=== PATIENT | female | born 1995 | race Caucasian/White ===

== ENCOUNTER → 2020-06-14 14:15 | Outpatient (BNVA) | payer MEDICARE, MEDICAID, SELFPAY | PROVIDERS: Visit Provider Internal Medicine | DX: E11.9 Type 2 diabetes mellitus without complications (principal); K52.9 Noninfective gastroenteritis and colitis, unspecified | CPT/HCPCS: 36415; 80053; 85025; 85651 ==

== ENCOUNTER 2020-06-18 08:48 | Day surgery (SDC) | payer MEDICARE, MEDICAID, SELFPAY ==
[2020-06-17 10:12] VITALS: BMI 21.2
[2020-06-18 09:07] VITALS: BP 119/81; PULSE 106; RESP 18; TEMP 36.3; O2SAT 100
--- NOTE | 2020-06-18 09:24 | ANES.PREANE2 ---
Pre-Anesthetic Assessment Pre-Anesthetic Assessment: Height/Weight: Height 1.65 m Weight 58.06 kg Temp Pulse Resp BP Pulse Ox 97.3 F L 106 H 18 119/81 100 06/18/20 09:07 06/18/20 09:07 06/18/20 09:07 06/18/20 09:07 06/18/20 09:07 Preop Diagnosis: ibd Proposed Procedure: Operation Date: 06/18/20 10:30 Proposed Procedures p EGD [id number] K52.9(Not Applicable) - Omkar Pinon MD s Colonoscopy(Not Applicable) - Omkar Pinon MD Last intake: Intake Last Liquid Date 06/17/20 Last Liquid Time 19:00 Last Solid Date 06/09/20 Last Solid Time 23:30 Social: Social History: Alcohol (occ) and Tobacco Exam: Pre-Anes Outpt Exam: alert, oriented x 3, clear to auscultation bilaterally and regular rate & rhythm Airway: Submandibular: WNL Cervical ROM: WNL MP: 2 Dentition: Other (poor dentation) History/ROS: No significant history except as noted Pulmonary: Pulmonary: None reported CV/HEM: CV/HEM: None reported : : None reported Hepatic: Hepatic: None reported GI: Comments: Crohn's disease Metabolic: Metabolic: None reported Musc/skel: Musc/skel: None reported Neuropsych: Neuropsych: None reported Anesthetic Plan: ASA status: 2 Anesthesia: Anesthesia Evaluation and MAC Risk of > 500 ml blood loss (7ml/kg in children): No PFSH Anesthesia PFSH: Medical History (Updated 06/18/20 @ 09:24 by Robert Romero MD) Crohn's disease Family History Father Cancer Other Diabetes Social History Smoking and tobacco status: current some day smoker Alcohol intake: current Alcohol intake frequency: holidays/special occasions only Alcohol type: hard liquor Adopted: No service: No History of recent travel: No Current gender identity: Female Data Anesthesia Cardiac Studies: No Data to Display
[2020-06-18] MEDS: sodium chloride 0.9% 1,000 ML 30 ML IV (09:33)
--- NOTE | 2020-06-18 10:57 | W.PM.OPSUD ---
Surgery/Procedure H&P Update DATE OF PROCEDURE: June 18, 2020 DATE H&P PERFORMED: 06/14/20 PREOP DIAGNOSIS: ibd PLANNED PROCEDURE: Operation Date: 06/18/20 10:30 Proposed Procedures p EGD [id number] K52.9(Not Applicable) - Omkar Pinon MD s Colonoscopy(Not Applicable) - Omkar Pinon MD
--- NOTE | 2020-06-18 10:59 | W.PM.OPSUD ---
Surgery/Procedure H&P Update DATE OF PROCEDURE: June 18, 2020 DATE H&P PERFORMED: 06/14/20 PREOP DIAGNOSIS: ibd PLANNED PROCEDURE: Operation Date: 06/18/20 10:30 Proposed Procedures p EGD [id number] K52.9(Not Applicable) - Omkar Pinon MD s Colonoscopy(Not Applicable) - Omkar Pinon MD
[2020-06-18 11:00] LABS: OR HCG Qualitative Urine Negative (Negative)
[2020-06-18 11:12] VITALS: BP 93/57; PULSE 92; RESP 16; TEMP 36.3; O2SAT 100
[2020-06-18 11:29] VITALS: BP 103/80; PULSE 89; RESP 18; O2SAT 100
--- NOTE | 2020-06-18 12:06 | ANE.PACU2 ---
Inpatient post-anesthesia follow up: Airway intact: Yes Vital signs: Temperature 97.4 F Pulse Rate 89 Respiratory Rate 18 Blood Pressure 103/80 Pulse Oximetry 100 Oxygen Delivery Me thod Room Air Oxygen Flow Rate 3.0 Fraction of Inspir ed Oxygen Hydration adequate: Yes Nausea and vomiting: No Mental status: Baseline
[2020-06-21 06:31] LABS: H. Pylori / CLO Test Negative
== END 2020-06-18 12:10 | disposition home or self-care (01) ==
PROVIDERS: Anesthesiology; Visit Provider Internal Medicine
PROC: 0DJ08ZZ Inspection of Upper Intestinal Tract, Via Natural or Artificial Opening Endoscopic (ICD-10-PCS; CPT 43235; principal; 2020-06-18 10:30)
PROC: 0DJD8ZZ Inspection of Lower Intestinal Tract, Via Natural or Artificial Opening Endoscopic (ICD-10-PCS; CPT 45378; 2020-06-18 10:30)
DX: K52.9 Noninfective gastroenteritis and colitis, unspecified (principal); K92.1 Melena; F17.210 Nicotine dependence, cigarettes, uncomplicated; K29.70 Gastritis, unspecified, without bleeding
CPT/HCPCS: 12345; 43239; 45380; 84703; 87077; 88305; J2704; J3010; J7030

== ENCOUNTER 2020-08-11 12:38 | Outpatient (CLI) | payer MEDICARE, MEDICAID, SELFPAY ==
[2020-08-11 13:47] LABS: HIV 1 & 2 Antibody Non-Reactive (Non-Reactiv); HIV 1 & 2 Antigen Non-Reactive (Non-Reactiv)
== END 2020-08-11 12:39 | disposition home or self-care (01) ==
LOC: LAB 12:39
PROVIDERS: Visit Provider Family Medicine Adult Medicine
DX: Z20.6 Contact with and (suspected) exposure to human immunodeficiency virus [HIV] (principal)
CPT/HCPCS: 87806

== ENCOUNTER 2021-05-15 11:45 | Inpatient (IN) | payer MEDICARE, MEDICAID, SELFPAY ==
[2021-05-15 11:50] VITALS: BP 118/88; PULSE 93; RESP 18; TEMP 36.5; O2SAT 100; BMI 19.6
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
[2021-05-15 12:50] LABS: Add Urine Microscopic? YES; Amphetamines Screen Urine Negative (Negative); Barbiturates Screen Urine Negative (Negative); Benzodiazepines Screen Urine Negative (Negative); Bilirubin Urine 1+ (Negative); Blood Urine 3+ (Negative); Cocaine Screen Urine Negative (Negative); Glucose Urine UA Norm (Normal); Ketones Urine Negative (Negative); Leukocyte Esterase Urine Negative (Negative); Nitrate Urine Negative (Negative); Opiate Screen Urine Negative (Negative); PCP Screen Urine Negative (Negative); Protein Urine Neg (Negative); THC Screen Urine Negative (Negative); Urine Appearance Clear (CLEAR); Urine Color Yellow (Yellow); Urobilinogen Urine Norm (Negative); pH Urine 5 (5-7)
[2021-05-15 12:52] LABS: Bacteria Urine TRACE /hpf; Mucus Urine 1+ /hpf; RBC Urine 15-25 /hpf (0-2); Squamous Epithelial Cell Urine 15-25 /hpf (0-5); WBC Urine RARE /hpf (0-5)
[2021-05-15 12:53] LABS: Add Urine Culture? No
[2021-05-15 13:47] LABS: HCG Qualitative Urine. Negative (Negative)
[2021-05-15 13:50] LABS: Basophils % 0.4 %; Eosinophils % 0.8 %; Hematocrit 47.1 % (37.0-47.0); Hemoglobin 14.8 g/dL (11.5-15.3); Mean Corpuscular HGB Conc 31.4 g/dL (30.0-36.0); Mean Corpuscular Hemoglobin 26.5 pg (28.0-34.0); Mean Corpuscular Volume 84.3 fL (81-99); Mean Platelet Volume 10.2 fL (7.4-10.4); Monocytes # 0.4 10^3/uL (0.2-0.9); Monocytes % 15.6 %; Neutrophils # 1.03 10^3/uL (1.8-7.7); Neutrophils % 42.2 %; Nucleated Red Blood Cells % 0 %; Platelet Count 273 10^3/cmm (130-400); Red Blood Count 5.59 10^6/uL (4.1-5.3); Red Cell Distribution Width 15.9 % (12.1-15.1); White Blood Count 2.4 10^3/uL (4.0-10.0)
[2021-05-15 14:03] LABS: Acetaminophen < 5.0 ug/mL (10-30); Alanine Aminotransferase 15 U/L (0-33); Albumin Level 3.8 g/dL (3.5-5.2); Alcohol Level < 10 mg/dL (0-10); Alkaline Phosphatase 73 IU/L (35-105); Anion Gap 14.8 (5-19); Aspartate Amino Transferase 21 U/L (0-32); Blood Urea Nitrogen 16 mg/dL (6-20); Carbon Dioxide 29 mmol/L (22-29); Chloride 98 mmol/L (98-107); Globulin 3.6 g/dL (1.3-4.6); Glomerular Filtration Rate 88.1 mL/min (90-130); Glucose 73 mg/dL (65-115); Osmolality Calculated 286 mOsm/kg (285-295); Potassium 3.8 mmol/L (3.5-5.1); Salicylate < 0.3 mg/dL (3-10); Sodium 138 mmol/L (136-145); Total Bilirubin 0.6 mg/dL (0.15-1.2); Total Protein 7.4 g/dL (6.6-8.7)
[2021-05-15 14:16] LABS: Slide Review Slide Review Perform
[2021-05-15 14:28] VITALS: BP 107/82; PULSE 87; RESP 16; TEMP 36.6; O2SAT 98
--- NOTE | 2021-05-15 14:48 | PC.NURSE ---
reports called to Don RN. awaiting alarm security or surveillance monitor. Pt also requesting cough medication. Doctor aware with, pharmacy called to supply ordered medication. Pt quietly resting at this time with etelvina Alcantar, At door.
[2021-05-15] MEDS: guaiFENesin 100 mg/5 mL UDC 10 mL 200 MG PO (15:04)
[2021-05-15 15:25] VITALS: BP 110/80; PULSE 117; RESP 18; TEMP 36.6; O2SAT 97
[2021-05-15] MEDS: nicotine 2 mg Gum BUCCAL (20:56)
[2021-05-15 21:39] VITALS: BP 106/75; PULSE 87; RESP 19; TEMP 36.6; O2SAT 97
[2021-05-16 06:00] VITALS: BP 101/70; PULSE 76; RESP 17; TEMP 36.6; O2SAT 98
[2021-05-16] MEDS: acetaminophen 325 mg Tablet 650 MG PO (08:37)
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
[2021-05-16 14:00] VITALS: BP 109/75; PULSE 76; RESP 18; TEMP 36.6; O2SAT 100
--- NOTE | 2021-05-16 15:55 | PC.RESP ---
SMOKING CESSATION INFORMATION SENT TO PATIENT.
[2021-05-16] MEDS: fluoxetine 20 mg Capsule PO (17:04)
[2021-05-16 22:00] VITALS: BP 100/66; PULSE 74; RESP 14; TEMP 36.6; O2SAT 99
[2021-05-17] MEDS: trazodone 50 mg Tablet PO ×2 (01:31→20:57)
--- NOTE | 2021-05-17 01:42 | PC.NURSE ---
Pt came to nurses desk requesting something to help her sleep. Trazodone 50mg po given.
[2021-05-17 06:00] VITALS: BP 93/58; PULSE 74; RESP 14; TEMP 36.6; O2SAT 97
[2021-05-17] MEDS: fluoxetine 20 mg Capsule PO (08:05)
[2021-05-17 13:56] VITALS: BP 102/70; PULSE 72; RESP 16; TEMP 36.6; O2SAT 99
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
[2021-05-17] MEDS: acetaminophen 325 mg Tablet 650 MG PO (18:11)
[2021-05-17 20:30] VITALS: BP 107/76; PULSE 68; RESP 16; TEMP 37.1; O2SAT 98
[2021-05-17] MEDS: ondansetron 4 MG Tablet PO (20:57)
--- NOTE | 2021-05-17 21:00 | PC.NURSE ---
pt c/o upset stomach and not being able to sleep. zofran 4mg po for nausea and trazodone 50mg po given for sleep.
--- NOTE | 2021-05-17 22:10 | PC.NURSE ---
pt resting quietly with both eyes closed.
[2021-05-18 06:00] VITALS: BP 99/65; PULSE 65; RESP 15; TEMP 37.1; O2SAT 99
[2021-05-18] MEDS: BuSPIRONE 10 mg Tablet 15 MG PO ×2 (07:52→08:00)
[2021-05-18] MEDS: fluoxetine 20 mg Capsule PO ×2 (07:54→08:00)
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
[2021-05-18 11:15] VITALS: BP 99/65; PULSE 65; RESP 15; TEMP 37.1; O2SAT 99
== END 2021-05-18 11:32 | disposition home or self-care (01) | DRG 880 ==
LOC: ER 12:31 → NP 14:33
PROVIDERS: Admitting Provider Psychiatry & Neurology Psychiatry; Emergency Provider Family Medicine; Visit Provider Psychiatry & Neurology Psychiatry
DX: F41.8 Other specified anxiety disorders (principal); R45.851 Suicidal ideations; K92.1 Melena; Z59.0 Homelessness; F17.210 Nicotine dependence, cigarettes, uncomplicated; Z20.6 Contact with and (suspected) exposure to human immunodeficiency virus [HIV]; K29.70 Gastritis, unspecified, without bleeding; F43.10 Post-traumatic stress disorder, unspecified
CPT/HCPCS: 80053; 80306; 80307; 81001; 81025; 85025; 99285; Q0162

== ENCOUNTER 2023-12-04 17:13 | Emergency (ER) | payer MEDICARE, MEDICAID, SELFPAY ==
[2023-12-04 17:17] VITALS: BP 132/85; PULSE 110; RESP 14; TEMP 37; O2SAT 100; BMI 18.3
--- NOTE | 2023-12-04 17:45 | W.ED.PSYCHS ---
HPI - Psych General: Chief Complaint: Psychiatric Symptoms Stated Complaint: MHE Time Seen by Provider: 12/04/23 17:27 Source: patient Mode of arrival: ambulatory Limitations: no limitations History of Present Illness: 28-year-old female who is homeless states she just came to [place] 2 days ago states she has not felt safe at the new group home she is in. She states that she is rehash some thoughts major depression denies being SI or HI she states she came here because she want to stay in the MPU instead of the group home Associated symptoms: Reports depression Review of Systems Const: Denies: fever(s), chills, body aches or change in appetite ENMT: Denies: throat pain or dental pain Card: Denies: chest pain GI: Denies: abdominal pain, nausea, vomiting or diarrhea Musc: Denies: neck pain or back pain Skin/Breast: Denies: rash Neuro: Denies: headache(s) Psych: Reports: depression PFSH ED PFSH: Medical History HIV exposure Crohn's disease Family History Father Cancer Other Diabetes Social History Smoking and tobacco/nicotine status: current some day tobacco/nicotine user cigarettes Packs smoked per day: 0.5 Years cigarettes smoked: 1 Alcohol intake: never Adopted: No Housing: Homeless Marital status: Single service: No Current occupational status: unemployed and disabled Current gender identity: Female Physical Exam Const: COMMON NORMALS: no acute distress, patient oriented x3 and healthy appearing HENMT: COMMON NORMALS: normocephalic and atraumatic HEAD & SCALP: normocephalic and atraumatic Eye: COMMON NORMALS: Equal, round and reactive pupils present and EOMs intact bilaterally PUPIL: Yes Equal, round and reactive pupils present Neck/C-Spine: COMMON NORMALS: full ROM and supple Chest: COMMONS NORMALS: normal inspection of the chest and normal palpation of entire chest wall Resp: COMMON NORMALS: normal respiratory effort, No retractions, No use of accessory muscles and clear to auscultation bilaterally AUSCULTATION: clear to auscultation bilaterally Cardio: COMMON NORMALS: regular rate, regular rhythm and No murmurs present (Cardio) RATE: regular rate RHYTHM: regular rhythm GI: COMMON NORMALS: Normal to inspection, nondistended, normoactive bowel sounds present, Soft to palpation, non-tender and no masses PALPATION: Yes Soft to palpation Extremity: COMMON NORMALS: normal to inspection and full ROM Neuro: COMMON NORMALS: patient oriented x3, moves all extremities and no focal motor deficits Psych: COMMON NORMALS: mental status grossly normal, Normal thought process present and cooperative THOUGHT PROCESS: Normal thought process present Skin: COMMON NORMALS: no rashes or lesions noted and no wounds GENERAL SKIN EXAM: no rashes or lesions noted Course Vital Signs: Vital signs: Vital Signs Temperature 98.6 F 12/04/23 17:17 Pulse Rate 110 H 12/04/23 17:17 Respiratory Rate 14 12/04/23 17:17 Blood Pressure 132/85 12/04/23 17:17 Pulse Oximetry 100 12/04/23 17:17 Oxygen Delivery Me thod Room Air 12/04/23 17:17 MDM - Psych Medical Decision Making Patient presents here with depression she is not suicidal or homicidal currently homeless but does live in a group home she was mainly wanting a different place to stay do not believe that she is truly suicidal or homicidal she still can state that group home she stable for discharge back there. Medical Records I reviewed the patient's medical records. No radiology studies performed this visit Discharge Plan Discharge Patient Disposition: Home Clinical Impression: Depressed Condition: Stable Discharge Orders: Discharge ED (Routine); Ordered 12/04/23 Ordered By: Javier Limon Referrals: Catalina Daly FNP [Primary Care Provider] - 1-3 days Discharge Diet: Advance as tolerated Discharge Activity: Resume usual activity Patient Instructions: Depression (ED) Coding Level of Care Code ED Pretzel Twister for Jimi Pederson
== END 2023-12-04 19:20 | disposition home or self-care (01) ==
PROVIDERS: Emergency Provider Emergency Medicine; PCP Nurse Practitioner Family
DX: F32.A Depression, unspecified (principal); Z59.01 Sheltered homelessness
CPT/HCPCS: 99283

== ENCOUNTER 2024-10-28 18:06 | Inpatient (IN) | payer MEDICARE, MEDICAID, SELFPAY ==
[2024-10-28 18:23] VITALS: BP 112/79; PULSE 92; RESP 16; TEMP 36.7; O2SAT 98
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
--- NOTE | 2024-10-28 18:44 | XRR_ITS ---
PROCEDURE INFORMATION: Exam: XR Left Knee Exam date and time: 10/28/2024 7:03 PM Age: 29 years old Clinical indication: Pain; Left; Prior surgery; Surgery date: 1-6 months; Surgery type: Lt knee; Additional info: Knee pain S/P surgery TECHNIQUE: Imaging protocol: Radiologic exam of the left knee. Views: 3 views. COMPARISON: No relevant prior studies available. FINDINGS: Bones/joints: Proximal tibial orthopedic hardware in place. Soft tissues: Normal. XR/XR knee LT 3V* [id number] IMPRESSION: Proximal tibial orthopedic hardware in place. Negative for acute bony abnormality.
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
[2024-10-28] MEDS: ibuprofen 600 mg Tablet PO (18:50)
--- NOTE | 2024-10-28 19:01 | PC.NURSE ---
pts belongings were inventoried at this time with security
[2024-10-28 19:17] LABS: HCG Qualitative Urine. Negative (Negative)
[2024-10-28 19:24] LABS: Amphetamines Screen Urine Negative (Negative); Barbiturates Screen Urine Negative (Negative); Benzodiazepines Screen Urine Negative (Negative); Cocaine Screen Urine Negative (Negative); Opiate Screen Urine Negative (Negative); PCP Screen Urine Negative (Negative); THC Screen Urine Negative (Negative)
[2024-10-28 20:07] LABS: Basophils # 0.1 10^3/uL (0.0-0.1); Basophils % 1.1 %; Eosinophils # 0.2 10^3/uL (0.0-0.8); Eosinophils % 2.4 %; Hematocrit 40.7 % (36-47); Lymphocytes # 1.9 10^3/uL (0.8-4.8); Lymphocytes % 30.4 %; Mean Corpuscular HGB Conc 32.2 g/dL (30-55); Mean Corpuscular Hemoglobin 29.7 pg (27-33); Mean Corpuscular Volume 92.3 fl (85-98); Mean Platelet Volume 9.2 fL (7.4-10.4); Monocytes # 0.5 10^3/uL (0.2-0.9); Monocytes % 8.4 %; Neutrophils # 3.57 10^3/uL (1.8-7.7); Neutrophils % 57.5 %; Nucleated Red Blood Cells % 0 %; Platelet Count 377 10^3/cmm (157-399); Red Blood Count 4.41 10^6/uL (3.85-5.65); Red Cell Distribution Width 13.1 % (12.1-15.1); White Blood Count 6.21 10^3/uL (3.29-11.43)
[2024-10-28 20:34] LABS: Alanine Aminotransferase 8 U/L (0-33); Albumin Level 3.8 g/dL (3.5-5.2); Alkaline Phosphatase 99 U/L (35-105); Aspartate Amino Transferase 14 U/L (0-32); Blood Urea Nitrogen 15 mg/dL (6-20); Calcium 9.1 mg/dL (8.5-10.5); Carbon Dioxide 22 mmol/L (22-29); Chloride 104 mmol/L (98-107); Creatinine Clr Calc Pharmacy 149.3375; Globulin 3.7 g/dL (1.3-4.6); Glucose 81 mg/dL (65-115); Osmolality Calculated 284 mOsm/kg (285-295); Sodium 137 mmol/L (136-145); Total Bilirubin 1.1 mg/dL (0.15-1.2); Total Protein 7.5 g/dL (6.6-8.7)
[2024-10-28 20:43] VITALS: BP 99/49; PULSE 72; RESP 16; O2SAT 98
[2024-10-28 20:52] LABS: Acetaminophen < 5.0 ug/mL (10-30); Alcohol Level < 10 mg/dL (0-10); Anion Gap 15.4 (5-19); Potassium 4.4 mmol/L (3.5-5.1); Salicylate < 0.3 mg/dL (3-10)
--- NOTE | 2024-10-28 23:59 | PC.NURSE ---
[facility] Pt served with copy of [facility] by this RN and Security. Pt A&Ox3, all questions answered. Pt calm and cooperative. Pt educated on further admitting floor and provider.
[2024-10-29 00:21] VITALS: BP 113/74; PULSE 78; RESP 16; TEMP 36.4; O2SAT 100
[2024-10-29 00:25] VITALS: BP 110/60; PULSE 68; O2SAT 97
[2024-10-29] MEDS: hyDROXYzine 25 mg Capsule 50 MG PO ×2 (01:29→20:50)
[2024-10-29] MEDS: trazodone 50 mg Tablet PO ×2 (01:30→20:50)
[2024-10-29 06:00] VITALS: BP 98/52; PULSE 72; RESP 16; TEMP 36.4; O2SAT 99
[2024-10-29] MEDS: flu vacc pf 24-25 (6 mos+) SYRINGE 45 MCG IM (08:27)
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
[2024-10-29] MEDS: ibuprofen 600 mg Tablet PO ×2 (13:12→20:50)
[2024-10-29 14:00] VITALS: BP 99/67; PULSE 78; RESP 18; TEMP 36.6; O2SAT 94
[2024-10-29] MEDS: acetaminophen 325 mg Tablet 650 MG PO (17:35)
[2024-10-29 20:26] VITALS: BP 92/64; PULSE 80; RESP 16; TEMP 37; O2SAT 97
[2024-10-30 06:00] VITALS: BP 88/60; PULSE 72; RESP 16; TEMP 36.8; O2SAT 97
[2024-10-30] MEDS: ibuprofen 600 mg Tablet PO ×2 (08:29→21:07)
[2024-10-30 14:00] VITALS: BP 97/62; PULSE 85; RESP 18; TEMP 36.9; O2SAT 99
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
[2024-10-30] MEDS: acetaminophen 325 mg Tablet 650 MG PO (16:59)
[2024-10-30 20:56] VITALS: BP 95/62; PULSE 82; RESP 15; TEMP 36.6; O2SAT 98
[2024-10-30] MEDS: hyDROXYzine 25 mg Capsule 50 MG PO (21:06)
[2024-10-30] MEDS: trazodone 50 mg Tablet PO (21:07)
[2024-10-31 06:00] VITALS: BP 92/58; PULSE 80; RESP 15; TEMP 36.9; O2SAT 98
[2024-10-31] MEDS: acetaminophen 325 mg Tablet 650 MG PO ×3 (08:25→17:47)
[2024-10-31] MEDS: BuSPIRONE 10 mg Tablet PO ×2 (08:25→17:26)
[2024-10-31] MEDS: fluoxetine 20 mg Capsule PO (08:25)
[2024-10-31 14:00] VITALS: BP 105/73; PULSE 89; RESP 18; TEMP 36.9; O2SAT 98
[2024-10-31] MEDS: ibuprofen 600 mg Tablet PO ×2 (15:04→21:24)
[2024-10-31] MEDS: blistex lip oint 7 gm Tube 1 APPLIC TOPICAL (17:47)
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
[2024-10-31 19:50] VITALS: BP 105/62; PULSE 82; RESP 16; TEMP 36.6; O2SAT 97
[2024-10-31] MEDS: hyDROXYzine 25 mg Capsule 50 MG PO (21:24)
[2024-10-31] MEDS: trazodone 50 mg Tablet PO (21:24)
[2024-11-01] MEDS: hyDROXYzine 25 mg Capsule 50 MG PO ×2 (04:56→19:39)
[2024-11-01 06:00] VITALS: BP 99/58; PULSE 76; RESP 16; TEMP 36.5; O2SAT 94
[2024-11-01] MEDS: BuSPIRONE 10 mg Tablet PO ×2 (07:59→17:07)
[2024-11-01] MEDS: fluoxetine 20 mg Capsule PO (07:59)
[2024-11-01] MEDS: acetaminophen 325 mg Tablet 650 MG PO ×2 (08:34→17:07)
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
[2024-11-01 14:00] VITALS: BP 116/67; PULSE 86; RESP 18; TEMP 36.8; O2SAT 99
[2024-11-01] MEDS: ibuprofen 600 mg Tablet PO (15:16)
--- NOTE | 2024-11-01 18:48 | PC.NURSE ---
Anuel Fallon's phone number is [phone]
[2024-11-01] MEDS: trazodone 50 mg Tablet PO (19:39)
[2024-11-01] MEDS: OLANZapine 5 mg ODT PO (19:39)
[2024-11-01 19:44] VITALS: BP 100/69; PULSE 90; RESP 18; TEMP 36.4; O2SAT 98
[2024-11-02 06:15] VITALS: BP 87/62; PULSE 74; RESP 16; O2SAT 96
[2024-11-02] MEDS: BuSPIRONE 10 mg Tablet PO ×2 (08:09→20:13)
[2024-11-02] MEDS: fluoxetine 20 mg Capsule PO (08:09)
[2024-11-02] MEDS: acetaminophen 325 mg Tablet 650 MG PO (08:09)
[2024-11-02 14:00] VITALS: BP 105/66; PULSE 76; RESP 15; TEMP 36.6; O2SAT 98
[2024-11-02] MEDS: ibuprofen 600 mg Tablet PO (15:51)
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
[2024-11-02 19:59] VITALS: BP 100/67; PULSE 89; RESP 18; TEMP 36.4; O2SAT 96
[2024-11-02] MEDS: trazodone 50 mg Tablet PO (20:13)
[2024-11-03 06:00] VITALS: BP 129/86; PULSE 73; RESP 16; TEMP 36.6; O2SAT 97
[2024-11-03] MEDS: fluoxetine 20 mg Capsule PO (07:34)
[2024-11-03] MEDS: BuSPIRONE 10 mg Tablet PO ×3 (07:35→21:02)
[2024-11-03] MEDS: acetaminophen 325 mg Tablet 650 MG PO (07:35)
[2024-11-03] MEDS: nicotine 2 mg Gum BUCCAL (13:57)
[2024-11-03 14:00] VITALS: BP 104/72; PULSE 91; RESP 18; TEMP 36.6; O2SAT 98
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
[2024-11-03 20:09] VITALS: BP 102/71; PULSE 87; RESP 16; TEMP 37; O2SAT 97
[2024-11-03] MEDS: trazodone 50 mg Tablet PO (21:02)
[2024-11-04] MEDS: acetaminophen 325 mg Tablet 650 MG PO (05:33)
[2024-11-04 06:00] VITALS: BP 100/69; PULSE 92; RESP 18; TEMP 36.4; O2SAT 97
[2024-11-04] MEDS: BuSPIRONE 10 mg Tablet PO ×2 (08:36→14:38)
[2024-11-04] MEDS: fluoxetine 20 mg Capsule 30 MG PO (08:42)
[2024-11-04] MEDS: nicotine 2 mg Gum BUCCAL (11:47)
--- NOTE | 2024-11-04 12:30 | DCPLANNER ---
Imm was given to pt and rights explained and copy placed in pts file.
[2024-11-04] MEDS: ibuprofen 600 mg Tablet PO (12:57)
[2024-11-04] MEDS: nicotine 4 mg lozenge MUCOUS MEM (13:57)
[2024-11-04 14:00] VITALS: BP 100/65; PULSE 97; RESP 18; TEMP 36.6; O2SAT 97
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
[2024-11-04 14:26] VITALS: BP 100/69; PULSE 18; RESP 92; TEMP 36.4; O2SAT 97
== END 2024-11-04 16:18 | disposition home or self-care (01) | DRG 885 ==
LOC: ER 23:16 → NP 23:51
PROVIDERS: Admitting Provider Psychiatry & Neurology Psychiatry; Emergency Provider Physician Assistant; Visit Provider Psychiatry & Neurology Psychiatry
DX: F33.9 Major depressive disorder, recurrent, unspecified (principal); R45.851 Suicidal ideations; Z59.00 Homelessness unspecified; M25.562 Pain in left knee; Z87.820 Personal history of traumatic brain injury
CPT/HCPCS: 70450; 73562; 80053; 80306; 80307; 81025; 85025; 90471; 90686; 97150; 97165; 97167; 99285

== ENCOUNTER 2025-07-28 16:31 | Inpatient (IN) | payer MEDICARE, MEDICAID, SELFPAY ==
[2025-07-28 16:31] VITALS: BP 110/75; PULSE 68; RESP 16; TEMP 36.8; O2SAT 100
--- OUTSIDE RECORDS SUMMARY | 2025-07-28 16:34 | XMS_ITS | Patient Health Record ---
Author Organization [facility] Address [address], [place] [address] Support Name Relationship Address Phone Nicolasa Vang Guarantor Unknown Reason For Referral No Information Medications Medication SIG (Take, Route, Frequency, Duration) Notes Start Date End Date Status Triamcinolone Acetonide 0.25 MG/ML Topical Cream Triamcinolone Acetonide 0.25 MG/ML Topical Cream 03/27/2017 Active Fluticasone propionate 0.05 MG/ACTUAT Metered Dose Nasal [place] Fluticasone propionate 0.05 MG/ACTUAT Metered Dose Nasal [place] 08/21/2016 Active Folic Acid 1 MG Oral Tablet Folic Acid 1 MG Oral Tablet 08/08/2016 Active Nystatin 493708 UNT/ML Topical Cream Nystatin 001525 UNT/ML Topical Cream 12/21/2016 Active Ibuprofen 200 MG Oral Tablet Ibuprofen 200 MG Oral Tablet 01/08/2017 Active Loratadine 10 MG Oral Tablet Loratadine 10 MG Oral Tablet 08/29/2016 Active Immunizations Vaccine Route Administration Date Status Comme nts DTaP-Hib Unknown 1997 Administered Hep B, adolescent or pediatr ic (11-19), 3 dose schedule Unknown 1997 Administered Hib (PRP-T), 4 dose schedule , ActHIB Unknown 07/21/1998 Administered HPV (human papillomavirus), bivalent, 3 dose schedule Unknown 11/04/2013 Administered IPV Unknown 05/06/2001 Administered MMR Unknown 05/06/2001 Administered Tdap Unknown 03/27/2017 Administered Varicella (Varicella-Zoster/ Chicken Pox) Unknown 11/04/2013 Administered DTaP-Hib Unknown 05/06/2001 Administered DTaP-Hib Unknown 07/21/1998 Administered DTaP-Hib Unknown 1997 Administered DTaP-Hib Unknown 1997 Administered Hep B, adolescent or pediatr ic (11-19), 3 dose schedule Unknown 1997 Administered Hep B, adolescent or pediatr ic (11-19), 3 dose schedule Unknown 1997 Administered Hib (PRP-T), 4 dose schedule , ActHIB Unknown 1997 Administered HPV (human papillomavirus), bivalent, 3 dose schedule Unknown 08/14/2012 Administered HPV (human papillomavirus), bivalent, 3 dose schedule Unknown 05/05/2009 Administered MMR Unknown 06/10/1998 Administered Tdap Unknown 04/01/2010 Administered Varicella (Varicella-Zoster/ Chicken Pox) Unknown 06/10/1998 Administered Social History Social History Additional Details Category Social Info Options Details zzMigrated Social History Migrated Social History Smoking Status:Never smoked tobacco (finding) Plan Of Treatment No Information
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
[2025-07-28 16:55] LABS: Glucose Urine UA Negative (Normal); Nitrate Urine Negative (Negative); Specific Gravity, Urine 1.028 (1.005-1.030)
[2025-07-28 16:59] LABS: Add Urine Microscopic? YES; HCG Qualitative Urine. Negative (Negative)
[2025-07-28 17:04] LABS: PCP Screen Urine Negative (Negative)
[2025-07-28 17:14] LABS: Hematocrit 40.7 % (36-47); Hemoglobin 12.90 g/dL (11.27-16.99); Mean Corpuscular HGB Conc 31.7 g/dL (30-55); Mean Corpuscular Hemoglobin 29.6 pg (27-33); Mean Corpuscular Volume 93.3 fl (85-98); Nucleated Red Blood Cells % 0 %; Platelet Count 409 10^3/cmm (157-399); Red Blood Count 4.36 10^6/uL (3.85-5.65); White Blood Count 7.13 10^3/uL (3.29-11.43)
[2025-07-28 17:20] LABS: UA Slide Review UA Slide Review Perf
[2025-07-28 17:25] LABS: Alanine Aminotransferase 9 U/L (0-33); Albumin Level 3.8 g/dL (3.5-5.2); Alkaline Phosphatase 85 U/L (35-105); Anion Gap 10.4 (5-19); Aspartate Amino Transferase 13 U/L (0-32); Blood Urea Nitrogen 9 mg/dL (6-20); Calcium 8.6 mg/dL (8.5-10.5); Carbon Dioxide 27 mmol/L (22-29); Chloride 108 mmol/L (98-107); Creatinine Clr Calc Pharmacy 127.3450; Globulin 4.1 g/dL (1.3-4.6); Glucose 70 mg/dL (65-115); Osmolality Calculated 289 mOsm/kg (285-295); Potassium 4.4 mmol/L (3.5-5.1); Sodium 141 mmol/L (136-145); Total Protein 7.9 g/dL (6.6-8.7)
[2025-07-28 17:26] LABS: Acetaminophen < 5.0 ug/mL (10-30); Alcohol Level < 10 mg/dL (0-10); Salicylate < 0.3 mg/dL (3-10)
[2025-07-28 20:42] VITALS: BP 85/49; PULSE 90; O2SAT 97
[2025-07-28 20:47] VITALS: BP 105/72; PULSE 69; RESP 20; TEMP 36.4; O2SAT 100
[2025-07-28 22:00] VITALS: BP 105/72; PULSE 69; RESP 20; TEMP 36.4; O2SAT 100
[2025-07-29 06:00] VITALS: BP 96/60; PULSE 76; RESP 14; TEMP 36.7; O2SAT 98
--- NOTE | 2025-07-29 06:19 | PC.NURSE ---
Pt was very cooperartive
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
--- NOTE | 2025-07-29 09:09 | NUR.SHIFT ---
Pt states that she slept good last night. She denies anxiety and depression. No reports of SI/HI or hallucinations. No reports of pain. Pt was asleep when I entered the room. I asked her if she would like to eat her breakfast and she declined. Pt was calm and cooperative on assessment.
[2025-07-29 13:23] VITALS: BP 98/65; PULSE 77; RESP 16; TEMP 36.6; O2SAT 98
[2025-07-29 21:08] VITALS: BP 109/67; PULSE 87; RESP 14; TEMP 36.7; O2SAT 98
[2025-07-30 06:00] VITALS: BP 88/59; PULSE 68; RESP 16; TEMP 36.7; O2SAT 99
[2025-07-30 14:00] VITALS: BP 101/72; PULSE 72; RESP 18; TEMP 36.6; O2SAT 99
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
[2025-07-30 20:09] VITALS: BP 107/79; PULSE 78; RESP 18; TEMP 36.4; O2SAT 100
--- NOTE | 2025-07-31 04:26 | PC.NURSE ---
pt pain/ emesis pt complained of 'menstrual pain' and was given meds per the MAR. pt very shortly after went to the bathroom in her room and then came up to the desk and said she was dizzy and then vomitted. We got her cleaned up and back to bed. she states she got to hot.
[2025-07-31 06:00] VITALS: BP 93/59; PULSE 73; RESP 18; TEMP 36.6; O2SAT 100
[2025-07-31 14:00] VITALS: BP 115/78; PULSE 100; RESP 17; TEMP 36.6; O2SAT 98
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
[2025-07-31 20:23] VITALS: BP 100/76; PULSE 90; RESP 17; TEMP 36.6; O2SAT 98
[2025-08-01 14:00] VITALS: BP 120/82; PULSE 75; RESP 16; TEMP 36.6; O2SAT 100
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
[2025-08-01 21:50] VITALS: BP 105/78; PULSE 88; RESP 18; TEMP 36.6; O2SAT 98
[2025-08-02 06:00] VITALS: BMI 18.8
--- NOTE | 2025-08-02 06:53 | PC.NURSE ---
pt refused vs, nurse notified, resp 16
[2025-08-02 13:12] VITALS: BP 115/80; PULSE 128; RESP 16; TEMP 36.8; O2SAT 97
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
[2025-08-02 20:22] VITALS: BP 104/71; PULSE 77; RESP 18; TEMP 36.4; O2SAT 95
--- NOTE | 2025-08-03 08:33 | NUR.SHIFT ---
Pt states that she slept good last night. No reports of anxiety or depression. Denies SI/HI or hallucinations. She rates her pain a 5/10 and associates this with menstural cramps. She is calm and cooperative on assessment. She is excited to d/c today.
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
--- NOTE | 2025-08-03 12:18 | DCPLANNER ---
IMM completed on 08/03/2025 @ 8000 and pt was given information on paper.
[2025-08-03 13:47] VITALS: BP 102/72; PULSE 81; RESP 16; TEMP 36.8; O2SAT 97
[2025-08-03 13:58] VITALS: BP 102/72; PULSE 81; RESP 16; TEMP 36.8; O2SAT 97
== END 2025-08-03 17:31 | disposition home or self-care (01) | DRG 885 ==
LOC: ER 18:58 → NP 19:59
PROVIDERS: Admitting Provider Psychiatry & Neurology Psychiatry; Emergency Provider Physician Assistant; Visit Provider Psychiatry & Neurology Psychiatry
DX: F33.9 Major depressive disorder, recurrent, unspecified (principal); R45.851 Suicidal ideations; F15.20 Other stimulant dependence, uncomplicated; Z59.00 Homelessness unspecified; K50.90 Crohn's disease, unspecified, without complications; Z88.1 Allergy status to other antibiotic agents; F17.210 Nicotine dependence, cigarettes, uncomplicated; F43.10 Post-traumatic stress disorder, unspecified; Z87.820 Personal history of traumatic brain injury; Z91.51 Personal history of suicidal behavior; Z62.810 Personal history of physical and sexual abuse in childhood; Z62.811 Personal history of psychological abuse in childhood; Z81.3 Family history of other psychoactive substance abuse and dependence; Z81.8 Family history of other mental and behavioral disorders; Z82.49 Family history of ischemic heart disease and other diseases of the circulatory system; Z80.9 Family history of malignant neoplasm, unspecified; Z93.0 Tracheostomy status
CPT/HCPCS: 36415; 36416; 80053; 80306; 80307; 81001; 81025; 82962; 85025; 87086; 97150; 97165; 99285; J9999; Q0162

== ENCOUNTER 2025-08-22 13:56 | Emergency (ER) | payer MEDICARE, MEDICAID, SELFPAY ==
[2025-08-22 13:59] VITALS: PULSE 101; RESP 16; O2SAT 99
--- OUTSIDE RECORDS SUMMARY | 2025-08-22 14:00 | XMS_ITS | Encounter Summary ---
Author Organization [facility] Address [address] [place] [address] Care Team Providers Care Acquisition Marketing Coordinator Name Role Phone Unavailable Primary Care Provider Unavailabl e Encounter Details Date Type Department Care Team (Late st Contact Info) Description 02/25/2024 Lab Requisition [facility] [address] 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 Adequate 02/25/2024 6:31 AM CDT [facility] ANISOCYTOSIS 1+ /hpf 02/25/2024 6:31 AM CDT [facility] POIKILOCYTES 1+ /hpf 02/25/2024 6:31 AM CDT [facility] Blood Collection / Unknown 02/25/2024 3:00 AM CDT 02/25/2024 5:51 AM CDT us Satnam Lawrence DO HEMATOLOGY ORDERABLES COM Malia dyer Result [facility] CLIA # [id number] [address] [address] [place] [address] * (ABNORMAL) CBC WITH DIFFERENTIAL (02/25/2024 3:00 AM CDT) [facility] WBC 5.3 4.5 - 11.0 K/uL 02/25/2024 6:31 AM CDT [facility] RBC 4.42 4.20 - 5.40 M/uL 02/25/2024 6:31 AM CDT [facility] HEMOGLOBIN 13.0 12.0 - 16.0 g/dL 02/25/2024 6:31 AM CDT [facility] HEMATOCRIT 41.4 36.0 - 46.0 % 02/25/2024 6:31 AM CDT [facility] MCV 93.7 84.0 - 103.0 fL 02/25/2024 6:31 AM CDT [facility] MCH 29.4 27.0 - 34.0 pg 02/25/2024 6:31 AM CDT [facility] MCHC 31.4 30.0 - 35.0 g/dL 02/25/2024 6:31 AM CDT [facility] RDW 20.3(H) 11.0 - 14.5 % 02/25/2024 6:31 AM CDT [facility] RDW-STDEV 69.4(H) 37.0 - 54.0 fL 02/25/2024 6:31 AM CDT [facility] PLATELETS 426 140 - 440 K/uL 02/25/2024 6:31 AM CDT [facility] MPV 9.3 8.9 - 12.8 fL 02/25/2024 6:31 AM CDT [facility] NEUTROPHILS 43 42 - 75 % 02/25/2024 6:31 AM CDT [facility] LYMPHOCYTES 39 24 - 44 % 02/25/2024 6:31 AM CDT [facility] MONOCYTES 10 2 - 10 % 02/25/2024 6:31 AM CDT [facility] EOSINOPHILS 6 0 - 7 % 02/25/2024 6:31 AM CDT [facility] BASOPHILS 1 0 - 1 % 02/25/2024 6:31 AM CDT [facility] IMMATURE GRANULOCYTES 0 0 - 2 % 02/25/2024 6:31 AM CDT [facility] NEUTROPHIL ABSOLUTE 2.30 2.00 - 8.00 K/uL 02/25/2024 6:31 AM CDT [facility] LYMPHOCYTE ABSOLUTE 2.09 1.20 - 4.00 K/uL 02/25/2024 6:31 AM CDT [facility] MONOCYTE ABSOLUTE 0.52 0.10 - 0.60 K/uL 02/25/2024 6:31 AM CDT [facility] EOSINOPHIL ABSOLUTE 0.33 0.00 - 0.70 K/uL 02/25/2024 6:31 AM CDT [facility] BASOPHILS ABSOLUTE 0.05 0.00 - 0.20 K/uL 02/25/2024 6:31 AM CDT [facility] IMMATURE GRANULOCYTES ABSOLUTE 0.02 0.00 - 0.10 K/uL 02/25/2024 6:31 AM CDT [facility] Blood Collection / Unknown 02/25/2024 3:00 AM CDT 02/25/2024 5:51 AM CDT us Satnam Lawrence DO HEMATOLOGY ORDERABLES Final Re sult [facility] CLIA # [id number] [address] [address] [place] [address] * (ABNORMAL) COMPREHENSIVE METABOLIC PANEL (02/25/2024 3:00 AM CDT) [facility] SODIUM 140 136 - 145 mmol/L 02/25/2024 6:26 AM [facility] POTASSIUM 3.9 3.5 - 5.1 mmol/L 02/25/2024 6:26 AM [facility] CHLORIDE 107 98 - 107 mmol/L 02/25/2024 6:26 AM [facility] CO2 22 22 - 29 mmol/L 02/25/2024 6:26 AM [facility] CALCIUM 9.5 8.6 - 10.0 mg/dL 02/25/2024 6:26 AM [facility] BUN 14 6 - 20 mg/dL 02/25/2024 6:26 AM [facility] CREATININE 0.63 0.51 - 0.95 mg/dL 02/25/2024 6:26 AM [facility] GLUCOSE 83 74 - 99 mg/dL 02/25/2024 6:26 AM [facility] TOTAL PROTEIN 8.1 6.4 - 8.3 g/dL 02/25/2024 6:26 AM [facility] ALBUMIN 3.6 3.5 - 5.2 g/dL 02/25/2024 6:26 AM [facility] BILIRUBIN TOTAL 0.4 0.2 - 1.0 mg/dL 02/25/2024 6:26 AM [facility] ALKALINE PHOSPHATASE 114(H) 35 - 104 U/L 02/25/2024 6:26 AM [facility] AST 13 10 - 35 U/L 02/25/2024 6:26 AM [facility] ALT 11 <=35 U/L 02/25/2024 6:26 AM [facility] GFR >60 >=60 mL/min/1.7 3 sq meter 02/25/2024 6:26 AM [facility] Comment:eGFR calculated with 2020 CKD-EPI equation. Vegetarian diet, extremely high or low muscle mass, and may affect results. Cystatin C with Glomerular Filtration Rate is a suitable alternative for these patients. ANION GAP 11 9 - 20 mmol/L 02/25/2024 6:26 AM CDT [facility] Blood Collection / Unknown 02/25/2024 3:00 AM CDT 02/25/2024 5:51 AM CDT us Satnam Lawrence DO CHEMISTRY ORDERABLES Final Res ult [facility] CLIA # [id number] [facility] [address] documented in this encounter Visit Diagnoses Not on filedocumented in this encounter
--- OUTSIDE RECORDS SUMMARY | 2025-08-22 14:00 | XMS_ITS | Encounter Summary ---
Author Organization [facility] Address [address] [place] [address] Care Team Providers Care Supervisor Of Instruction Name Role Phone Unavailable Primary Care Provider Unavailabl e Encounter Details Date Type Department Care Team (Late st Contact Info) Description 02/11/2024 Lab Requisition [facility] Laboratory Services [address] 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 Adequate 02/11/2024 8:09 AM CDT [facility] ANISOCYTOSIS 2+ /hpf 02/11/2024 8:09 AM CDT [facility] Blood Collection / Unknown 02/11/2024 3:50 AM CDT 02/11/2024 7:11 AM CDT us Satnam Lawrence DO HEMATOLOGY ORDERABLES COM Malia l Result [facility] CLIA # [id number] [address] [facility] [place] [address] * (ABNORMAL) CBC WITH DIFFERENTIAL (02/11/2024 3:50 AM CDT) [facility] WBC 5.5 4.5 - 11.0 K/uL 02/11/2024 8:09 AM CDT [facility] RBC 3.90(L) 4.20 - 5.40 M/uL 02/11/2024 8:09 AM CDT [facility] HEMOGLOBIN 11.1(L) 12.0 - 16.0 g/dL 02/11/2024 8:09 AM CDT [facility] HEMATOCRIT 37.0 36.0 - 46.0 % 02/11/2024 8:09 AM CDT [facility] MCV 94.9 84.0 - 103.0 fL 02/11/2024 8:09 AM CDT [facility] MCH 28.5 27.0 - 34.0 pg 02/11/2024 8:09 AM CDT [facility] MCHC 30.0 30.0 - 35.0 g/dL 02/11/2024 8:09 AM CDT [facility] RDW 22.0(H) 11.0 - 14.5 % 02/11/2024 8:09 AM CDT [facility] RDW-STDEV 76.1(H) 37.0 - 54.0 fL 02/11/2024 8:09 AM CDT [facility] PLATELETS 368 140 - 440 K/uL 02/11/2024 8:09 AM CDT [facility] MPV 10.0 8.9 - 12.8 fL 02/11/2024 8:09 AM CDT [facility] NEUTROPHILS 54 42 - 75 % 02/11/2024 8:09 AM CDT [facility] LYMPHOCYTES 29 24 - 44 % 02/11/2024 8:09 AM CDT [facility] MONOCYTES 10 2 - 10 % 02/11/2024 8:09 AM CDT [facility] EOSINOPHILS 6 0 - 7 % 02/11/2024 8:09 AM CDT [facility] BASOPHILS 1 0 - 1 % 02/11/2024 8:09 AM CDT [facility] IMMATURE GRANULOCYTES 0 0 - 2 % 02/11/2024 8:09 AM CDT [facility] NEUTROPHIL ABSOLUTE 2.94 2.00 - 8.00 K/uL 02/11/2024 8:09 AM CDT [facility] LYMPHOCYTE ABSOLUTE 1.56 1.20 - 4.00 K/uL 02/11/2024 8:09 AM CDT [facility] MONOCYTE ABSOLUTE 0.56 0.10 - 0.60 K/uL 02/11/2024 8:09 AM CDT [facility] EOSINOPHIL ABSOLUTE 0.32 0.00 - 0.70 K/uL 02/11/2024 8:09 AM CDT [facility] BASOPHILS ABSOLUTE 0.05 0.00 - 0.20 K/uL 02/11/2024 8:09 AM CDT [facility] IMMATURE GRANULOCYTES ABSOLUTE 0.02 0.00 - 0.10 K/uL 02/11/2024 8:09 AM CDT [facility] Blood Collection / Unknown 02/11/2024 3:50 AM CDT 02/11/2024 7:11 AM CDT us Stanam Lawrence DO HEMATOLOGY ORDERABLES Edited R esult - Final [facility] CLIA # [id number] [address] [address] [place] [address] * (ABNORMAL) COMPREHENSIVE METABOLIC PANEL (02/11/2024 3:50 AM CDT) [facility] SODIUM 139 136 - 145 mmol/L 02/11/2024 8:14 AM [facility] POTASSIUM 4.3 3.5 - 5.1 mmol/L 02/11/2024 8:14 AM [facility] CHLORIDE 105 98 - 107 mmol/L 02/11/2024 8:14 AM [facility] CO2 23 22 - 29 mmol/L 02/11/2024 8:14 AM [facility] CALCIUM 8.9 8.6 - 10.0 mg/dL 02/11/2024 8:14 AM [facility] BUN 14 6 - 20 mg/dL 02/11/2024 8:14 AM [facility] CREATININE 0.56 0.51 - 0.95 mg/dL 02/11/2024 8:14 AM [facility] GLUCOSE 78 74 - 99 mg/dL 02/11/2024 8:14 AM [facility] TOTAL PROTEIN 7.5 6.4 - 8.3 g/dL 02/11/2024 8:14 AM [facility] ALBUMIN 2.9(L) 3.5 - 5.2 g/dL 02/11/2024 8:14 AM [facility] BILIRUBIN TOTAL 0.3 0.2 - 1.0 mg/dL 02/11/2024 8:14 AM [facility] ALKALINE PHOSPHATASE 125(H) 35 - 104 U/L 02/11/2024 8:14 AM [facility] AST 17 10 - 35 U/L 02/11/2024 8:14 AM [facility] Comment:Hemolysis present. R esult may be falsely elevated. ALT 12 <=35 U/L 02/11/2024 8:14 AM [facility] GFR >60 >=60 mL/min/1.7 3 sq meter 02/11/2024 8:14 AM [facility] Comment:eGFR calculated with 2020 CKD-EPI equation. Vegetarian diet, extremely high or low muscle mass, and may affect results. Cystatin C with Glomerular Filtration Rate is a suitable alternative for these patients. ANION GAP 11 9 - 20 mmol/L 02/11/2024 8:14 AM CDT [facility] Blood Collection / Unknown 02/11/2024 3:50 AM CDT 02/11/2024 7:11 AM CDT us Satnam Lawrence DO CHEMISTRY ORDERABLES Final Res ult [facility] CLIA # [id number] [address] [address] documented in this encounter Visit Diagnoses Not on filedocumented in this encounter
--- OUTSIDE RECORDS SUMMARY | 2025-08-22 14:00 | XMS_ITS | Encounter Summary ---
Author Organization [facility] Address [address] [place] [address] Care Team Providers Care On Car Supervisor Name Role Phone Unavailable Primary Care Provider Unavailabl e Encounter Details Date Type Department Care Team (Late st Contact Info) Description 02/04/2024 Lab Requisition [facility] Laboratory Services [address] 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 Adequate 02/04/2024 8:04 AM CDT [facility] ANISOCYTOSIS 3+ /hpf 02/04/2024 8:04 AM CDT [facility] POIKILOCYTES 1+ /hpf 02/04/2024 8:04 AM CDT [facility] POLYCHROMASIA 1+ /hpf 02/04/2024 8:04 AM CDT [facility] Blood Collection / Unknown 02/04/2024 2:30 AM CDT 02/04/2024 7:30 AM CDT us Satnam Lawrence DO HEMATOLOGY ORDERABLES COM Malia l Result [facility] CLIA # [id number] [address] [address] [place] [address] * (ABNORMAL) COMPREHENSIVE METABOLIC PANEL (02/04/2024 2:30 AM CDT) SODIUM 140 136 - 145 mmol/L 02/04/2024 8:14 AM CDT [facility] POTASSIUM 4.1 3.5 - 5.1 mmol/L 02/04/2024 8:14 AM CDT [facility] CHLORIDE 106 98 - 107 mmol/L 02/04/2024 8:14 AM CDT [facility] CO2 25 22 - 29 mmol/L 02/04/2024 8:14 AM CDT [facility] CALCIUM 9.2 8.6 - 10.0 mg/dL 02/04/2024 8:14 AM CDT [facility] BUN 10 6 - 20 mg/dL 02/04/2024 8:14 AM CDT [facility] CREATININE 0.56 0.51 - 0.95 mg/dL 02/04/2024 8:14 AM CDT [facility] GLUCOSE 77 74 - 99 mg/dL 02/04/2024 8:14 AM CDT [facility] TOTAL PROTEIN 7.8 6.4 - 8.3 g/dL 02/04/2024 8:14 AM CDT [facility] ALBUMIN 3.2(L) 3.5 - 5.2 g/dL 02/04/2024 8:14 AM CDT [facility] BILIRUBIN TOTAL 0.2 0.2 - 1.0 mg/dL 02/04/2024 8:14 AM CDT [facility] ALKALINE PHOSPHATASE 133(H) 35 - 104 U/L 02/04/2024 8:14 AM T [facility] AST 12 10 - 35 U/L 02/04/2024 8:14 AM T [facility] ALT 7 <=35 U/L 02/04/2024 8:14 AM CDT [facility] GFR >60 >=60 mL/min/1.7 3 sq meter 02/04/2024 8:14 AM T [facility] Comment:eGFR calculated with 2020 CKD-EPI equation. Vegetarian diet, extremely high or low muscle mass, and may affect results. Cystatin C with Glomerular Filtration Rate is a suitable alternative for these patients. ANION GAP 9 9 - 20 mmol/L 02/04/2024 8:14 AM T [facility] Blood Collection / Unknown 02/04/2024 2:30 AM CDT 02/04/2024 7:30 AM CDT us Satnam Lawrence DO CHEMISTRY ORDERABLES Final Res ult [facility] CLIA # [id number] [address] [place] [address] * (ABNORMAL) CBC WITH DIFFERENTIAL (02/04/2024 2:30 AM CDT) WBC 4.1(L) 4.5 - 11.0 K/uL 02/04/2024 8:04 AM T [facility] RBC 4.14(L) 4.20 - 5.40 M/uL 02/04/2024 8:04 AM T [facility] HEMOGLOBIN 11.9(L) 12.0 - 16.0 g/dL 02/04/2024 8:04 AM T [facility] HEMATOCRIT 38.7 36.0 - 46.0 % 02/04/2024 8:04 AM T [facility] MCV 93.5 84.0 - 103.0 fL 02/04/2024 8:04 AM [facility] MCH 28.7 27.0 - 34.0 pg 02/04/2024 8:04 AM [facility] MCHC 30.7 30.0 - 35.0 g/dL 02/04/2024 8:04 AM [facility] RDW 23.1(H) 11.0 - 14.5 % 02/04/2024 8:04 AM [facility] RDW-STDEV 79.6(H) 37.0 - 54.0 fL 02/04/2024 8:04 AM [facility] PLATELETS 318 140 - 440 K/uL 02/04/2024 8:04 AM [facility] MPV 10.4 8.9 - 12.8 fL 02/04/2024 8:04 AM [facility] NEUTROPHILS 45 42 - 75 % 02/04/2024 8:04 AM [facility] LYMPHOCYTES 39 24 - 44 % 02/04/2024 8:04 AM [facility] MONOCYTES 11(H) 2 - 10 % 02/04/2024 8:04 AM [facility] EOSINOPHILS 4 0 - 7 % 02/04/2024 8:04 AM [facility] BASOPHILS 1 0 - 1 % 02/04/2024 8:04 AM [facility] IMMATURE GRANULOCYTES 0 0 - 2 % 02/04/2024 8:04 AM [facility] NEUTROPHIL ABSOLUTE 1.87(L) 2.00 - 8.00 K/uL 02/04/2024 8:04 AM [facility] LYMPHOCYTE ABSOLUTE 1.60 1.20 - 4.00 K/uL 02/04/2024 8:04 AM [facility] MONOCYTE ABSOLUTE 0.44 0.10 - 0.60 K/uL 02/04/2024 8:04 AM [facility] EOSINOPHIL ABSOLUTE 0.17 0.00 - 0.70 K/uL 02/04/2024 8:04 AM CDT [facility] BASOPHILS ABSOLUTE 0.05 0.00 - 0.20 K/uL 02/04/2024 8:04 AM CDT [facility] IMMATURE GRANULOCYTES ABSOLUTE 0.01 0.00 - 0.10 K/uL 02/04/2024 8:04 AM CDT [facility] Blood Collection / Unknown 02/04/2024 2:30 AM CDT 02/04/2024 7:30 AM CDT us Satnam Lawrence DO HEMATOLOGY ORDERABLES Final Re sult [facility] CLIA # [id number] [facility] [address] documented in this encounter Visit Diagnoses Not on filedocumented in this encounter
--- OUTSIDE RECORDS SUMMARY | 2025-08-22 14:00 | XMS_ITS | Clinical Summary ---
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
--- OUTSIDE RECORDS SUMMARY | 2025-08-22 14:00 | XMS_ITS | Encounter Summary ---
Author Organization [facility] Address [address] [place] [address] Care Team Providers Care Manager Transfer Name Role Phone Unavailable Primary Care Provider Unavailabl e Encounter Details Date Type Department Care Team (Late st Contact Info) Description 01/16/2024 Lab Requisition [facility] Laboratory Services [address] [place] [phone] [facility], External Provider [address] [place] [address] Social History Tobacco Use Types Packs/Day Years Used Date Smoking Tobacco: Never Assessed Comments Unknown Sex and Gender Information Value Date Recorded Sex Assigned at Not on file 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 Increased 01/16/2024 8:23 AM THEATRICAL VARIETY AGENT [facility] ANISOCYTOSIS 3+ /hpf 01/16/2024 8:23 AM THEATRICAL VARIETY AGENT [facility] POIKILOCYTES 1+ /hpf 01/16/2024 8:23 AM THEATRICAL VARIETY AGENT [facility] POLYCHROMASIA 1+ /hpf 01/16/2024 8:23 AM THEATRICAL VARIETY AGENT [facility] Blood Collection / Unknown 01/16/2024 4:00 AM THEATRICAL VARIETY AGENT 01/16/2024 7:31 AM THEATRICAL VARIETY AGENT us External Provider [facility] HEMATOLOGY ORDERABLES COM Final Result [facility] CLIA # [id number] [address] [address] [place] [address] * (ABNORMAL) CBC WITH DIFFERENTIAL (01/16/2024 4:00 AM THEATRICAL VARIETY AGENT) [facility] WBC 6.3 4.5 - 11.0 K/uL 01/16/2024 8:23 AM [facility] RBC 4.33 4.20 - 5.40 M/uL 01/16/2024 8:23 AM [facility] HEMOGLOBIN 12.4 12.0 - 16.0 g/dL 01/16/2024 8:23 AM [facility] HEMATOCRIT 40.6 36.0 - 46.0 % 01/16/2024 8:23 AM [facility] MCV 93.8 84.0 - 103.0 fL 01/16/2024 8:23 AM [facility] MCH 28.6 27.0 - 34.0 pg 01/16/2024 8:23 AM [facility] MCHC 30.5 30.0 - 35.0 g/dL 01/16/2024 8:23 AM [facility] RDW 25.9(H) 11.0 - 14.5 % 01/16/2024 8:23 AM [facility] RDW-STDEV 86.0(H) 37.0 - 54.0 fL 01/16/2024 8:23 AM [facility] PLATELETS 698(H) 140 - 440 K/uL 01/16/2024 8:23 AM [facility] MPV 9.9 8.9 - 12.8 fL 01/16/2024 8:23 AM [facility] NEUTROPHILS 49 42 - 75 % 01/16/2024 8:23 AM [facility] LYMPHOCYTES 35 24 - 44 % 01/16/2024 8:23 AM [facility] MONOCYTES 12(H) 2 - 10 % 01/16/2024 8:23 AM [facility] EOSINOPHILS 4 0 - 7 % 01/16/2024 8:23 AM [facility] BASOPHILS 1 0 - 1 % 01/16/2024 8:23 AM [facility] IMMATURE GRANULOCYTES 0 0 - 2 % 01/16/2024 8:23 AM [facility] NEUTROPHIL ABSOLUTE 3.04 2.00 - 8.00 K/uL 01/16/2024 8:23 AM [facility] LYMPHOCYTE ABSOLUTE 2.22 1.20 - 4.00 K/uL 01/16/2024 8:23 AM [facility] MONOCYTE ABSOLUTE 0.72(H) 0.10 - 0.60 K/uL 01/16/2024 8:23 AM [facility] EOSINOPHIL ABSOLUTE 0.23 0.00 - 0.70 K/uL 01/16/2024 8:23 AM [facility] BASOPHILS ABSOLUTE 0.04 0.00 - 0.20 K/uL 01/16/2024 8:23 AM [facility] IMMATURE GRANULOCYTES ABSOLUTE 0.02 0.00 - 0.10 K/uL 01/16/2024 8:23 AM [facility] Blood Collection / Unknown 01/16/2024 4:00 AM THEATRICAL VARIETY AGENT 01/16/2024 7:31 AM [facility] us External Provider [facility] HEMATOLOGY ORDERABLES Malia l Result [facility] CLIA # [id number] [facility] [address] [place] [address] * (ABNORMAL) COMPREHENSIVE METABOLIC PANEL (01/16/2024 4:00 AM THEATRICAL VARIETY AGENT) [facility] SODIUM 139 136 - 145 mmol/L 01/16/2024 8:12 AM [facility] POTASSIUM 4.5 3.5 - 5.1 mmol/L 01/16/2024 8:12 AM [facility] CHLORIDE 101 98 - 107 mmol/L 01/16/2024 8:12 AM [facility] CO2 25 22 - 29 mmol/L 01/16/2024 8:12 AM [facility] CALCIUM 10.0 8.6 - 10.0 mg/dL 01/16/2024 8:12 AM [facility] BUN 24(H) 6 - 20 mg/dL 01/16/2024 8:12 AM [facility] CREATININE 0.56 0.51 - 0.95 mg/dL 01/16/2024 8:12 AM [facility] GLUCOSE 83 74 - 99 mg/dL 01/16/2024 8:12 AM [facility] TOTAL PROTEIN 9.8(H) 6.4 - 8.3 g/dL 01/16/2024 8:12 AM [facility] ALBUMIN 3.6 3.5 - 5.2 g/dL 01/16/2024 8:12 AM [facility] BILIRUBIN TOTAL 0.3 0.2 - 1.0 mg/dL 01/16/2024 8:12 AM [facility] ALKALINE PHOSPHATASE 195(H) 35 - 104 U/L 01/16/2024 8:12 AM [facility] AST 17 10 - 35 U/L 01/16/2024 8:12 AM [facility] ALT 11 <=35 U/L 01/16/2024 8:12 AM [facility] GFR >60 >=60 mL/min/1.7 3 sq meter 01/16/2024 8:12 AM [facility] Comment:eGFR calculated with 2020 CKD-EPI equation. Vegetarian diet, extremely high or low muscle mass, and may affect results. Cystatin C with Glomerular Filtration Rate is a suitable alternative for these patients. ANION GAP 13 9 - 20 mmol/L 01/16/2024 8:12 AM [facility] Blood Collection / Unknown 01/16/2024 4:00 AM THEATRICAL VARIETY AGENT 01/16/2024 7:31 AM THEATRICAL VARIETY AGENT us External Provider [facility] CHEMISTRY ORDERABLES Final Result [facility] CLIA # [id number] [address] [place] [address] documented in this encounter Visit Diagnoses Not on filedocumented in this encounter
--- OUTSIDE RECORDS SUMMARY | 2025-08-22 14:00 | XMS_ITS | Encounter Summary ---
Author Organization [facility] Address [address] [place] [address] Care Team Providers Care Mold [employer]aning [employer] Supervisor Name Role Phone Unavailable Primary Care Provider Unavailabl e Encounter Details Date Type Department Care Team (Late st Contact Info) Description 01/28/2024 Lab Requisition [facility] Laboratory Services [address] 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 Adequate 01/28/2024 8:48 AM CDT [facility] ANISOCYTOSIS 3+ /hpf 01/28/2024 8:48 AM CDT [facility] MICROCYTES 1+ /hpf 01/28/2024 8:48 AM CDT [facility] Blood Collection / Unknown 01/28/2024 3:05 AM CDT 01/28/2024 8:09 AM CDT us Kael Alston DO HEMATOLOGY ORDERABLES COM Fi nal Result [facility] CLIA # [id number] [address] [address] [place] [address] * (ABNORMAL) CBC WITH DIFFERENTIAL (01/28/2024 3:05 AM CDT) [facility] WBC 5.4 4.5 - 11.0 K/uL 01/28/2024 8:48 AM CDT [facility] RBC 4.40 4.20 - 5.40 M/uL 01/28/2024 8:48 AM CDT [facility] HEMOGLOBIN 12.2 12.0 - 16.0 g/dL 01/28/2024 8:48 AM CDT [facility] HEMATOCRIT 41.5 36.0 - 46.0 % 01/28/2024 8:48 AM CDT [facility] MCV 94.3 84.0 - 103.0 fL 01/28/2024 8:48 AM CDT [facility] MCH 27.7 27.0 - 34.0 pg 01/28/2024 8:48 AM CDT [facility] MCHC 29.4(L) 30.0 - 35.0 g/dL 01/28/2024 8:48 AM CDT [facility] RDW 24.3(H) 11.0 - 14.5 % 01/28/2024 8:48 AM CDT [facility] RDW-STDEV 82.2(H) 37.0 - 54.0 fL 01/28/2024 8:48 AM CDT [facility] PLATELETS 386 140 - 440 K/uL 01/28/2024 8:48 AM CDT [facility] MPV 10.6 8.9 - 12.8 fL 01/28/2024 8:48 AM CDT [facility] NEUTROPHILS 52 42 - 75 % 01/28/2024 8:48 AM CDT [facility] LYMPHOCYTES 35 24 - 44 % 01/28/2024 8:48 AM CDT [facility] MONOCYTES 9 2 - 10 % 01/28/2024 8:48 AM CDT [facility] EOSINOPHILS 3 0 - 7 % 01/28/2024 8:48 AM CDT [facility] BASOPHILS 1 0 - 1 % 01/28/2024 8:48 AM CDT [facility] IMMATURE GRANULOCYTES 0 0 - 2 % 01/28/2024 8:48 AM CDT [facility] NEUTROPHIL ABSOLUTE 2.83 2.00 - 8.00 K/uL 01/28/2024 8:48 AM CDT [facility] LYMPHOCYTE ABSOLUTE 1.89 1.20 - 4.00 K/uL 01/28/2024 8:48 AM CDT [facility] MONOCYTE ABSOLUTE 0.46 0.10 - 0.60 K/uL 01/28/2024 8:48 AM CDT [facility] EOSINOPHIL ABSOLUTE 0.16 0.00 - 0.70 K/uL 01/28/2024 8:48 AM CDT [facility] BASOPHILS ABSOLUTE 0.05 0.00 - 0.20 K/uL 01/28/2024 8:48 AM CDT [facility] IMMATURE GRANULOCYTES ABSOLUTE 0.01 0.00 - 0.10 K/uL 01/28/2024 8:48 AM CDT [facility] Blood Collection / Unknown 01/28/2024 3:05 AM CDT 01/28/2024 8:09 AM CDT us Kael Alston DO HEMATOLOGY ORDERABLES Final Result [facility] CLIA # [id number] [address] [address] [place] [address] * (ABNORMAL) COMPREHENSIVE METABOLIC PANEL (01/28/2024 3:05 AM CDT) [facility] SODIUM 139 136 - 145 mmol/L 01/28/2024 8:49 AM [facility] POTASSIUM 3.9 3.5 - 5.1 mmol/L 01/28/2024 8:49 AM [facility] CHLORIDE 105 98 - 107 mmol/L 01/28/2024 8:49 AM [facility] CO2 24 22 - 29 mmol/L 01/28/2024 8:49 AM [facility] CALCIUM 9.6 8.6 - 10.0 mg/dL 01/28/2024 8:49 AM [facility] BUN 15 6 - 20 mg/dL 01/28/2024 8:49 AM [facility] CREATININE 0.58 0.51 - 0.95 mg/dL 01/28/2024 8:49 AM [facility] GLUCOSE 89 74 - 99 mg/dL 01/28/2024 8:49 AM [facility] TOTAL PROTEIN 8.5(H) 6.4 - 8.3 g/dL 01/28/2024 8:49 AM [facility] ALBUMIN 3.3(L) 3.5 - 5.2 g/dL 01/28/2024 8:49 AM [facility] BILIRUBIN TOTAL 0.4 0.2 - 1.0 mg/dL 01/28/2024 8:49 AM [facility] ALKALINE PHOSPHATASE 153(H) 35 - 104 U/L 01/28/2024 8:49 AM [facility] AST 15 10 - 35 U/L 01/28/2024 8:49 AM [facility] ALT 9 <=35 U/L 01/28/2024 8:49 AM [facility] GFR >60 >=60 mL/min/1.7 3 sq meter 01/28/2024 8:49 AM [facility] Comment:eGFR calculated with 2020 CKD-EPI equation. Vegetarian diet, extremely high or low muscle mass, and may affect results. Cystatin C with Glomerular Filtration Rate is a suitable alternative for these patients. ANION GAP 10 9 - 20 mmol/L 01/28/2024 8:49 AM CDT [facility] Blood Collection / Unknown 01/28/2024 3:05 AM CDT 01/28/2024 8:09 AM CDT us Kael Alston DO CHEMISTRY ORDERABLES Final R esult [facility] CLIA # [id number] [facility] [address] documented in this encounter Visit Diagnoses Not on filedocumented in this encounter
--- OUTSIDE RECORDS SUMMARY | 2025-08-22 14:00 | XMS_ITS | Encounter Summary ---
Author Organization [facility] Address [address] [place] [address] Care Team Providers Care Cook Frozen Dessert Name Role Phone Unavailable Primary Care Provider Unavailabl e Encounter Details Date Type Department Care Team (Late st Contact Info) Description 01/17/2024 Lab Requisition [facility] Laboratory Services [address] 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 Increased 01/17/2024 9:53 AM RECRUITING ASSISTANT [facility] ANISOCYTOSIS 3+ /hpf 01/17/2024 9:53 AM RECRUITING ASSISTANT [facility] POIKILOCYTES 1+ /hpf 01/17/2024 9:53 AM RECRUITING ASSISTANT [facility] POLYCHROMASIA 1+ /hpf 01/17/2024 9:53 AM RECRUITING ASSISTANT [facility] Blood Collection / Unknown 01/17/2024 3:27 AM RECRUITING ASSISTANT 01/17/2024 9:28 AM RECRUITING ASSISTANT aKel Alston DO HEMATOLOGY ORDERABLES COM Fi nal Result [facility] CLIA # [id number] [address] [place] [address] [place] [address] * (ABNORMAL) CBC WITH DIFFERENTIAL (01/17/2024 3:27 AM RECRUITING ASSISTANT) [facility] WBC 5.0 4.5 - 11.0 K/uL 01/17/2024 9:53 AM [facility] RBC 4.22 4.20 - 5.40 M/uL 01/17/2024 9:53 AM [facility] HEMOGLOBIN 11.5(L) 12.0 - 16.0 g/dL 01/17/2024 9:53 AM [facility] HEMATOCRIT 38.7 36.0 - 46.0 % 01/17/2024 9:53 AM [facility] MCV 91.7 84.0 - 103.0 fL 01/17/2024 9:53 AM [facility] MCH 27.3 27.0 - 34.0 pg 01/17/2024 9:53 AM [facility] MCHC 29.7(L) 30.0 - 35.0 g/dL 01/17/2024 9:53 AM [facility] RDW 26.1(H) 11.0 - 14.5 % 01/17/2024 9:53 AM [facility] RDW-STDEV 84.7(H) 37.0 - 54.0 fL 01/17/2024 9:53 AM [facility] PLATELETS 701(H) 140 - 440 K/uL 01/17/2024 9:53 AM [facility] MPV 9.7 8.9 - 12.8 fL 01/17/2024 9:53 AM [facility] NEUTROPHILS 47 42 - 75 % 01/17/2024 9:53 AM [facility] LYMPHOCYTES 36 24 - 44 % 01/17/2024 9:53 AM [facility] MONOCYTES 13(H) 2 - 10 % 01/17/2024 9:53 AM [facility] EOSINOPHILS 3 0 - 7 % 01/17/2024 9:53 AM [facility] BASOPHILS 1 0 - 1 % 01/17/2024 9:53 AM [facility] IMMATURE GRANULOCYTES 0 0 - 2 % 01/17/2024 9:53 AM [facility] NEUTROPHIL ABSOLUTE 2.37 2.00 - 8.00 K/uL 01/17/2024 9:53 AM [facility] LYMPHOCYTE ABSOLUTE 1.79 1.20 - 4.00 K/uL 01/17/2024 9:53 AM [facility] MONOCYTE ABSOLUTE 0.63(H) 0.10 - 0.60 K/uL 01/17/2024 9:53 AM [facility] EOSINOPHIL ABSOLUTE 0.16 0.00 - 0.70 K/uL 01/17/2024 9:53 AM [facility] BASOPHILS ABSOLUTE 0.04 0.00 - 0.20 K/uL 01/17/2024 9:53 AM [facility] IMMATURE GRANULOCYTES ABSOLUTE 0.01 0.00 - 0.10 K/uL 01/17/2024 9:53 AM [facility] Blood Collection / Unknown 01/17/2024 3:27 AM RECRUITING ASSISTANT 01/17/2024 9:28 AM [facility] us Kael Alston DO HEMATOLOGY ORDERABLES Final Result [facility] CLIA # [id number] [address] [address] [place] [address] * (ABNORMAL) COMPREHENSIVE METABOLIC PANEL (01/17/2024 3:27 AM RECRUITING ASSISTANT) SODIUM 138 136 - 145 mmol/L 01/17/2024 10:00 AM [facility] POTASSIUM 4.6 3.5 - 5.1 mmol/L 01/17/2024 10:00 AM [facility] CHLORIDE 101 98 - 107 mmol/L 01/17/2024 10:00 AM [facility] CO2 24 22 - 29 mmol/L 01/17/2024 10:00 AM [facility] CALCIUM 9.6 8.6 - 10.0 mg/dL 01/17/2024 10:00 AM [facility] BUN 23(H) 6 - 20 mg/dL 01/17/2024 10:00 AM [facility] CREATININE 0.53 0.51 - 0.95 mg/dL 01/17/2024 10:00 AM [facility] GLUCOSE 81 74 - 99 mg/dL 01/17/2024 10:00 AM [facility] TOTAL PROTEIN 8.7(H) 6.4 - 8.3 g/dL 01/17/2024 10:00 AM [facility] ALBUMIN 3.2(L) 3.5 - 5.2 g/dL 01/17/2024 10:00 AM [facility] BILIRUBIN TOTAL 0.3 0.2 - 1.0 mg/dL 01/17/2024 10:00 AM [facility] ALKALINE PHOSPHATASE 172(H) 35 - 104 U/L 01/17/2024 10:00 AM [facility] AST 16 10 - 35 U/L 01/17/2024 10:00 AM [facility] ALT 10 <=35 U/L 01/17/2024 10:00 AM [facility] GFR >60 >=60 mL/min/1.7 3 sq meter 01/17/2024 10:00 AM [facility] Comment:eGFR calculated with 2020 CKD-EPI equation. Vegetarian diet, extremely high or low muscle mass, and may affect results. Cystatin C with Glomerular Filtration Rate is a suitable alternative for these patients. ANION GAP 13 9 - 20 mmol/L 01/17/2024 10:00 AM RECRUITING ASSISTANT [facility] Blood Collection / Unknown 01/17/2024 3:27 AM RECRUITING ASSISTANT 01/17/2024 9:45 AM RECRUITING ASSISTANT us Kael Alston DO CHEMISTRY ORDERABLES Final R esult [facility] CLIA # [id number] [address] [place] [address] documented in this encounter Visit Diagnoses Not on filedocumented in this encounter
--- OUTSIDE RECORDS SUMMARY | 2025-08-22 14:00 | XMS_ITS | Encounter Summary ---
Author Organization [facility] Address [address] [place] [address] Care Team Providers Care Size Changer Name Role Phone Unavailable Primary Care Provider Unavailabl e Encounter Details Date Type Department Care Team (Late st Contact Info) Description 01/21/2024 Lab Requisition [facility] Services [address] [place] [address] [place] [id number] [facility], External Provider [address] [place] [address] Social History Tobacco Use Types Packs/Day Years Used Date Smoking Tobacco: Never Assessed Comments Unknown Sex and Gender Information Value Date Recorded Sex Assigned at Not on file Legal Sex Female 7:29 AM NURSE COLLEGE Gender Identity Not on file Sexual Orientation Not on file documented as of this encounter Plan of Treatment Not on file documented as of this encounter Procedures Procedure Name Priority Date/Time Associated Diagnosis Comments DIFFERENTIAL, MANUAL Routine 01/21/2024 3:45 AM NURSE COLLEGE CBC WITH DIFFERENTIAL Routine 01/21/2024 3:45 AM NURSE COLLEGE COMPREHENSIVE METABOLIC PANEL Routine 01/21/2024 3:45 AM NURSE COLLEGE documented in this encounter Results * MANUAL DIFFERENTIAL (01/21/2024 3:45 AM NURSE COLLEGE) PLATELET EST. Increased 01/21/2024 8:39 AM NURSE COLLEGE [facility] LAB[facility] ANISOCYTOSIS 3+ /hpf 01/21/2024 8:39 AM NURSE COLLEGE [facility] POIKILOCYTES 1+ /hpf 01/21/2024 8:39 AM NURSE COLLEGE [facility] Blood Collection / Unknown 01/21/2024 3:45 AM NURSE COLLEGE 01/21/2024 7:56 AM NURSE COLLEGE us External Provider [facility] HEMATOLOGY ORDERABLES COM Final Result [facility] # [id number] [address] [id number] [facility] [place] [address] * (ABNORMAL) CBC WITH DIFFERENTIAL (01/21/2024 3:45 AM NURSE COLLEGE) [facility] WBC 6.0 4.5 - 11.0 K/uL 01/21/2024 8:[address] [facility] RBC 4.08(L) 4.20 - 5.40 M/uL 01/21/2024 8:[address] [facility] HEMOGLOBIN 11.1(L) 12.0 - 16.0 g/dL 01/21/2024 8:[address] [facility] HEMATOCRIT 37.2 36.0 - 46.0 % 01/21/2024 8:[address] [facility] MCV 91.2 84.0 - 103.0 fL 01/21/2024 8:[address] [facility] MCH 27.2 27.0 - 34.0 pg 01/21/2024 8:[address] [facility] MCHC 29.8(L) 30.0 - 35.0 g/dL 01/21/2024 8:[address] [facility] RDW 25.0(H) 11.0 - 14.5 % 01/21/2024 8:[address] [facility] RDW-STDEV 81.9(H) 37.0 - 54.0 fL 01/21/2024 8:[address] [facility] PLATELETS 599(H) 140 - 440 K/uL 01/21/2024 8:[address] [facility] MPV 9.8 8.9 - 12.8 fL 01/21/2024 8:[address] [facility] NEUTROPHILS 48 42 - 75 % 01/21/2024 8:[address] [facility] LYMPHOCYTES 37 24 - 44 % 01/21/2024 8:[address] [facility] MONOCYTES 10 2 - 10 % 01/21/2024 8:[address] [facility] EOSINOPHILS 4 0 - 7 % 01/21/2024 8:[address] [facility] BASOPHILS 1 0 - 1 % 01/21/2024 8:[address] [facility] IMMATURE GRANULOCYTES 0 0 - 2 % 01/21/2024 8:[address] [facility] NEUTROPHIL ABSOLUTE 2.90 2.00 - 8.00 K/uL 01/21/2024 8:[address] [facility] LYMPHOCYTE ABSOLUTE 2.23 1.20 - 4.00 K/uL 01/21/2024 8:[address] [facility] MONOCYTE ABSOLUTE 0.57 0.10 - 0.60 K/uL 01/21/2024 8:[address] [facility] EOSINOPHIL ABSOLUTE 0.25 0.00 - 0.70 K/uL 01/21/2024 8:[address] [facility] BASOPHILS ABSOLUTE 0.05 0.00 - 0.20 K/uL 01/21/2024 8:[address] [facility] IMMATURE GRANULOCYTES ABSOLUTE 0.02 0.00 - 0.10 K/uL 01/21/2024 8:[address] [facility] Blood Collection / Unknown 01/21/2024 3:45 AM NURSE COLLEGE 01/21/2024 7:56 AM [facility] External Provider [facility] HEMATOLOGY ORDERABLES Malia l Result [facility] CLIA # [id number] [address] [place] [address] [place], [place] [id number] * (ABNORMAL) COMPREHENSIVE METABOLIC PANEL (01/21/2024 3:45 AM NURSE COLLEGE) SODIUM 138 136 - 145 mmol/L 01/21/2024 8:[address] [facility] POTASSIUM 4.1 3.5 - 5.1 mmol/L 01/21/2024 8:[address] [facility] CHLORIDE 101 98 - 107 mmol/L 01/21/2024 8:[address] [facility] CO2 24 22 - 29 mmol/L 01/21/2024 8:[address] [facility] CALCIUM 9.5 8.6 - 10.0 mg/dL 01/21/2024 8:[address] [facility] BUN 17 6 - 20 mg/dL 01/21/2024 8:[address] [facility] CREATININE 0.62 0.51 - 0.95 mg/dL 01/21/2024 8:[address] [facility] GLUCOSE 91 74 - 99 mg/dL 01/21/2024 8:[address] [facility] TOTAL PROTEIN 8.5(H) 6.4 - 8.3 g/dL 01/21/2024 8:[address] [facility] ALBUMIN 3.1(L) 3.5 - 5.2 g/dL 01/21/2024 8:[address] [facility] BILIRUBIN TOTAL 0.4 0.2 - 1.0 mg/dL 01/21/2024 8:[address] [facility] ALKALINE PHOSPHATASE 167(H) 35 - 104 U/L 01/21/2024 8:[address] [facility] AST 15 10 - 35 U/L 01/21/2024 8:[address] [facility] ALT 10 <=35 U/L 01/21/2024 8:[address] [facility] GFR >60 >=60 mL/min/1.7 3 sq meter 01/21/2024 8:[address] [facility] Comment:eGFR calculated with 2020 CKD-EPI equation. Vegetarian diet, extremely high or low muscle mass, and may affect results. Cystatin C with Glomerular Filtration Rate is a suitable alternative for these patients. ANION GAP 13 9 - 20 mmol/L 01/21/2024 8:[address] [facility] Blood Collection / Unknown 01/21/2024 3:45 AM NURSE COLLEGE 01/21/2024 7:56 AM NURSE COLLEGE us External Provider [facility] CHEMISTRY ORDERABLES Final Result Performing Organization Address City/State/[facility] Co de Phone Number [facility] LAB[facility] # [id number] [facility] [id number] documented in this encounter Visit Diagnoses Not on filedocumented in this encounter
--- OUTSIDE RECORDS SUMMARY | 2025-08-22 14:00 | XMS_ITS | Patient Health Record ---
Author Organization [facility] Address [address], [place] [address] Support Name Relationship Address Phone Nicolasa Vang Guarantor Unknown Reason For Referral No Information Medications Medication SIG (Take, Route, Frequency, Duration) Notes Start Date End Date Status Triamcinolone Acetonide 0.25 MG/ML Topical Cream Triamcinolone Acetonide 0.25 MG/ML Topical Cream 03/27/2017 Active Fluticasone propionate 0.05 MG/ACTUAT Metered Dose Nasal Shirley Fluticasone propionate 0.05 MG/ACTUAT Metered Dose Nasal Shirley 08/21/2016 Active Folic Acid 1 MG Oral Tablet Folic Acid 1 MG Oral Tablet 08/08/2016 Active Nystatin 961691 UNT/ML Topical Cream Nystatin 270445 UNT/ML Topical Cream 12/21/2016 Active Ibuprofen 200 MG Oral Tablet Ibuprofen 200 MG Oral Tablet 01/08/2017 Active Loratadine 10 MG Oral Tablet Loratadine 10 MG Oral Tablet 08/29/2016 Active Immunizations Vaccine Route Administration Date Status Comme nts DTaP-Hib Unknown 1997 Administered DTaP-Hib Unknown 1997 Administered DTaP-Hib Unknown 1997 Administered DTaP-Hib Unknown 07/21/1998 Administered DTaP-Hib Unknown 05/06/2001 Administered Hep B, adolescent or pediatr ic (11-19), 3 dose schedule Unknown 1997 Administered Hep B, adolescent or pediatr ic (11-19), 3 dose schedule Unknown 1997 Administered Hep B, adolescent or pediatr ic (11-19), 3 dose schedule Unknown 1997 Administered Hib (PRP-T), 4 dose schedule , ActHIB Unknown 1997 Administered Hib (PRP-T), 4 dose schedule , ActHIB Unknown 07/21/1998 Administered HPV (human papillomavirus), bivalent, 3 dose schedule Unknown 05/05/2009 Administered HPV (human papillomavirus), bivalent, 3 dose schedule Unknown 08/14/2012 Administered HPV (human papillomavirus), bivalent, 3 dose schedule Unknown 11/04/2013 Administered IPV Unknown 05/06/2001 Administered MMR Unknown 06/10/1998 Administered MMR Unknown 05/06/2001 Administered Tdap Unknown 04/01/2010 Administered Tdap Unknown 03/27/2017 Administered Varicella (Varicella-Zoster/ Chicken Pox) Unknown 06/10/1998 Administered Varicella (Varicella-Zoster/ Chicken Pox) Unknown 11/04/2013 Administered Social History Social History Additional Details Category Social Info Options Details zzMigrated Social History Migrated Social History Smoking Status:Never smoked tobacco (finding) Plan Of Treatment No Information
--- OUTSIDE RECORDS SUMMARY | 2025-08-22 14:00 | XMS_ITS | Encounter Summary ---
Author Organization [facility] Address [address] [place] [address] Care Team Providers Care Biomedical Service Engineer Name Role Phone Unavailable Primary Care Provider Unavailabl e Encounter Details Date Type Department Care Team (Late st Contact Info) Description 01/31/2024 Lab Requisition [facility] Laboratory Services [address] [place] [address] 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 Adequate 01/31/2024 10:29 AM CDT [facility] ANISOCYTOSIS 2+ /hpf 01/31/2024 10:29 AM CDT [facility] POIKILOCYTES 1+ /hpf 01/31/2024 10:29 AM CDT [facility] POLYCHROMASIA 1+ /hpf 01/31/2024 10:29 AM CDT [facility] Blood Collection / Unknown 01/31/2024 3:15 AM CDT 01/31/2024 9:32 AM CDT Kael Alston DO HEMATOLOGY ORDERABLES COM Fi nal Result [facility] CLIA # [id number] [address] [address] [place] [address] * (ABNORMAL) CBC WITH DIFFERENTIAL (01/31/2024 3:15 AM CDT) Pathologist [facility] WBC 4.4(L) 4.5 - 11.0 K/uL 01/31/2024 10:29 AM CDT [facility] RBC 3.92(L) 4.20 - 5.40 M/uL 01/31/2024 10:29 AM CDT [facility] HEMOGLOBIN 11.1(L) 12.0 - 16.0 g/dL 01/31/2024 10:29 AM T [facility] HEMATOCRIT 36.7 36.0 - 46.0 % 01/31/2024 10:29 AM T [facility] MCV 93.6 84.0 - 103.0 fL 01/31/2024 10:29 AM T [facility] MCH 28.3 27.0 - 34.0 pg 01/31/2024 10:29 AM T [facility] MCHC 30.2 30.0 - 35.0 g/dL 01/31/2024 10:29 AM T [facility] RDW 23.7(H) 11.0 - 14.5 % 01/31/2024 10:29 AM T [facility] RDW-STDEV 80.5(H) 37.0 - 54.0 fL 01/31/2024 10:29 AM CDT [facility] PLATELETS 317 140 - 440 K/uL 01/31/2024 10:29 AM CDT [facility] MPV 10.7 8.9 - 12.8 fL 01/31/2024 10:29 AM CDT [facility] NEUTROPHILS 45 42 - 75 % 01/31/2024 10:29 AM CDT [facility] LYMPHOCYTES 39 24 - 44 % 01/31/2024 10:29 AM T [facility] MONOCYTES 11(H) 2 - 10 % 01/31/2024 10:29 AM CDT [facility] EOSINOPHILS 4 0 - 7 % 01/31/2024 10:29 AM CDT [facility] BASOPHILS 1 0 - 1 % 01/31/2024 10:29 AM CDT [facility] IMMATURE GRANULOCYTES 0 0 - 2 % 01/31/2024 10:29 AM T [facility] NEUTROPHIL ABSOLUTE 1.97(L) 2.00 - 8.00 K/uL 01/31/2024 10:29 AM CDT [facility] LYMPHOCYTE ABSOLUTE 1.71 1.20 - 4.00 K/uL 01/31/2024 10:29 AM CDT [facility] MONOCYTE ABSOLUTE 0.46 0.10 - 0.60 K/uL 01/31/2024 10:29 AM CDT [facility] EOSINOPHIL ABSOLUTE 0.18 0.00 - 0.70 K/uL 01/31/2024 10:29 AM [facility] BASOPHILS ABSOLUTE 0.04 0.00 - 0.20 K/uL 01/31/2024 10:29 AM T [facility] IMMATURE GRANULOCYTES ABSOLUTE 0.01 0.00 - 0.10 K/uL 01/31/2024 10:29 AM [facility] Blood Collection / Unknown 01/31/2024 3:15 AM CDT 01/31/2024 9:32 AM CDT Kael Alston DO HEMATOLOGY ORDERABLES Final Result [facility] CLIA # [id number] [address] [address] [place] [address] * (ABNORMAL) COMPREHENSIVE METABOLIC PANEL (01/31/2024 3:15 AM CDT) [facility] SODIUM 138 136 - 145 mmol/L 01/31/2024 10:15 AM T [facility] POTASSIUM 4.3 3.5 - 5.1 mmol/L 01/31/2024 10:15 AM T [facility] CHLORIDE 104 98 - 107 mmol/L 01/31/2024 10:15 AM T [facility] CO2 25 22 - 29 mmol/L 01/31/2024 10:15 AM T [facility] CALCIUM 9.1 8.6 - 10.0 mg/dL 01/31/2024 10:15 AM T [facility] BUN 16 6 - 20 mg/dL 01/31/2024 10:15 AM [facility] CREATININE 0.58 0.51 - 0.95 mg/dL 01/31/2024 10:15 AM T [facility] GLUCOSE 84 74 - 99 mg/dL 01/31/2024 10:15 AM [facility] TOTAL PROTEIN 7.8 6.4 - 8.3 g/dL 01/31/2024 10:15 AM [facility] ALBUMIN 3.1(L) 3.5 - 5.2 g/dL 01/31/2024 10:15 AM T [facility] BILIRUBIN TOTAL 0.2 0.2 - 1.0 mg/dL 01/31/2024 10:15 AM T [facility] ALKALINE PHOSPHATASE 139(H) 35 - 104 U/L 01/31/2024 10:15 AM T [facility] AST 13 10 - 35 U/L 01/31/2024 10:15 AM T [facility] ALT 8 <=35 U/L 01/31/2024 10:15 AM T [facility] GFR >60 >=60 mL/min/1.7 3 sq meter 01/31/2024 10:15 AM CDT [facility] Comment:eGFR calculated with 2020 CKD-EPI equation. Vegetarian diet, extremely high or low muscle mass, and may affect results. Cystatin C with Glomerular Filtration Rate is a suitable alternative for these patients. ANION GAP 9 9 - 20 mmol/L 01/31/2024 10:15 AM CDT [facility] Blood Collection / Unknown 01/31/2024 3:15 AM CDT 01/31/2024 9:41 AM CDT Kael Alston DO CHEMISTRY ORDERABLES Final R esult [facility] CLIA # [id number] [address] [place] [address] documented in this encounter Visit Diagnoses Not on filedocumented in this encounter
--- OUTSIDE RECORDS SUMMARY | 2025-08-22 14:00 | XMS_ITS | Encounter Summary ---
Author Organization [facility] Address [address] [place] [address] Care Team Providers Care Newspaper Delivery Driver Name Role Phone Unavailable Primary Care Provider Unavailabl e Encounter Details Date Type Department Care Team (Late st Contact Info) Description 01/24/2024 Lab Requisition [facility] Laboratory Services [address] [place] [address] [place] [address] Kael Alston, DO [address] [place] [address] Social History Tobacco Use Types Packs/Day Years Used Date Smoking Tobacco: Never Assessed Comments Unknown Sex and Gender Information Value Date Recorded Sex Assigned at Not on file Legal Sex Female 7:29 AM PERSONAL FINANCIAL PLANNER Gender Identity Not on file Sexual Orientation Not on file documented as of this encounter Plan of Treatment Not on file documented as of this encounter Procedures Procedure Name Priority Date/Time Associated Diagnosis Comments DIFFERENTIAL, MANUAL Routine 01/24/2024 4:15 AM PERSONAL FINANCIAL PLANNER CBC WITH DIFFERENTIAL Routine 01/24/2024 4:15 AM PERSONAL FINANCIAL PLANNER COMPREHENSIVE METABOLIC PANEL Routine 01/24/2024 4:15 AM PERSONAL FINANCIAL PLANNER documented in this encounter Results * MANUAL DIFFERENTIAL (01/24/2024 4:15 AM PERSONAL FINANCIAL PLANNER) PLATELET EST. Increased 01/24/2024 8:27 AM PERSONAL FINANCIAL PLANNER [facility] ANISOCYTOSIS 4+ /hpf 01/24/2024 8:27 AM PERSONAL FINANCIAL PLANNER [facility] POIKILOCYTES 1+ /hpf 01/24/2024 8:27 AM PERSONAL FINANCIAL PLANNER [facility] POLYCHROMASIA 1+ /hpf 01/24/2024 8:27 AM PERSONAL FINANCIAL PLANNER [facility] Blood Collection / Unknown 01/24/2024 4:15 AM PERSONAL FINANCIAL PLANNER 01/24/2024 7:20 AM PERSONAL FINANCIAL PLANNER us Kael Alston DO HEMATOLOGY ORDERABLES COM Fi nal Result [facility] CLIA # [id number] [address] [place] [address] [place] [address] * (ABNORMAL) CBC WITH DIFFERENTIAL (01/24/2024 4:15 AM PERSONAL FINANCIAL PLANNER) Pathologist [facility] WBC 6.0 4.5 - 11.0 K/uL 01/24/2024 8:27 AM [facility] RBC 4.14(L) 4.20 - 5.40 M/uL 01/24/2024 8:27 AM [facility] HEMOGLOBIN 11.4(L) 12.0 - 16.0 g/dL 01/24/2024 8:27 AM [facility] HEMATOCRIT 38.2 36.0 - 46.0 % 01/24/2024 8:27 AM [facility] MCV 92.3 84.0 - 103.0 fL 01/24/2024 8:27 AM [facility] MCH 27.5 27.0 - 34.0 pg 01/24/2024 8:27 AM [facility] MCHC 29.8(L) 30.0 - 35.0 g/dL 01/24/2024 8:27 AM [facility] RDW 24.8(H) 11.0 - 14.5 % 01/24/2024 8:27 AM [facility] RDW-STDEV 82.0(H) 37.0 - 54.0 fL 01/24/2024 8:27 AM [facility] PLATELETS 483(H) 140 - 440 K/uL 01/24/2024 8:27 AM [facility] MPV 9.8 8.9 - 12.8 fL 01/24/2024 8:27 AM [facility] NEUTROPHILS 54 42 - 75 % 01/24/2024 8:27 AM [facility] LYMPHOCYTES 33 24 - 44 % 01/24/2024 8:27 AM [facility] MONOCYTES 9 2 - 10 % 01/24/2024 8:27 AM [facility] EOSINOPHILS 3 0 - 7 % 01/24/2024 8:27 AM [facility] BASOPHILS 1 0 - 1 % 01/24/2024 8:27 AM [facility] IMMATURE GRANULOCYTES 0 0 - 2 % 01/24/2024 8:27 AM [facility] NEUTROPHIL ABSOLUTE 3.23 2.00 - 8.00 K/uL 01/24/2024 8:27 AM [facility] LYMPHOCYTE ABSOLUTE 1.97 1.20 - 4.00 K/uL 01/24/2024 8:27 AM [facility] MONOCYTE ABSOLUTE 0.55 0.10 - 0.60 K/uL 01/24/2024 8:27 AM [facility] EOSINOPHIL ABSOLUTE 0.18 0.00 - 0.70 K/uL 01/24/2024 8:27 AM [facility] BASOPHILS ABSOLUTE 0.04 0.00 - 0.20 K/uL 01/24/2024 8:27 AM [facility] IMMATURE GRANULOCYTES ABSOLUTE 0.02 0.00 - 0.10 K/uL 01/24/2024 8:27 AM [facility] Blood Collection / Unknown 01/24/2024 4:15 AM PERSONAL FINANCIAL PLANNER 01/24/2024 7:20 AM [facility] us Kael Alston DO HEMATOLOGY ORDERABLES Final Result [facility] CLIA # [id number] [address] [address] [place] [address] * (ABNORMAL) COMPREHENSIVE METABOLIC PANEL (01/24/2024 4:15 AM PERSONAL FINANCIAL PLANNER) [facility] SODIUM 136 136 - 145 mmol/L 01/24/2024 8:27 AM [facility] POTASSIUM 4.3 3.5 - 5.1 mmol/L 01/24/2024 8:27 AM [facility] CHLORIDE 102 98 - 107 mmol/L 01/24/2024 8:27 AM [facility] CO2 25 22 - 29 mmol/L 01/24/2024 8:27 AM [facility] CALCIUM 9.7 8.6 - 10.0 mg/dL 01/24/2024 8:27 AM [facility] BUN 16 6 - 20 mg/dL 01/24/2024 8:27 AM [facility] CREATININE 0.62 0.51 - 0.95 mg/dL 01/24/2024 8:27 AM [facility] GLUCOSE 92 74 - 99 mg/dL 01/24/2024 8:27 AM [facility] TOTAL PROTEIN 8.3 6.4 - 8.3 g/dL 01/24/2024 8:27 AM [facility] ALBUMIN 3.3(L) 3.5 - 5.2 g/dL 01/24/2024 8:27 AM [facility] BILIRUBIN TOTAL 0.4 0.2 - 1.0 mg/dL 01/24/2024 8:27 AM [facility] ALKALINE PHOSPHATASE 157(H) 35 - 104 U/L 01/24/2024 8:27 AM [facility] AST 16 10 - 35 U/L 01/24/2024 8:27 AM [facility] ALT 9 <=35 U/L 01/24/2024 8:27 AM [facility] GFR >60 >=60 mL/min/1.7 3 sq meter 01/24/2024 8:27 AM [facility] Comment:eGFR calculated with 2020 CKD-EPI equation. Vegetarian diet, extremely high or low muscle mass, and may affect results. Cystatin C with Glomerular Filtration Rate is a suitable alternative for these patients. ANION GAP 9 9 - 20 mmol/L 01/24/2024 8:27 AM PERSONAL FINANCIAL PLANNER [facility] Blood Collection / Unknown 01/24/2024 4:15 AM PERSONAL FINANCIAL PLANNER 01/24/2024 7:20 AM PERSONAL FINANCIAL PLANNER us Kael Alston DO CHEMISTRY ORDERABLES Final R esult [facility] CLIA # [id number] [address] [place] [address] documented in this encounter Visit Diagnoses Not on filedocumented in this encounter
--- OUTSIDE RECORDS SUMMARY | 2025-08-22 14:00 | XMS_ITS | Encounter Summary ---
Author Organization [employer] Address [address] [place] [address] Care Team Providers Care Automobile Mechanic Supervisor Name Role Phone Unavailable Primary Care Provider Unavailabl e Encounter Details Date Type Department Care Team (Late st Contact Info) Description 02/18/2024 Lab Requisition [facility] [address] [place] [address] Satnam Lawrence, [address] [place] [address] Social History Tobacco Use Types Packs/Day Years Used Date Smoking Tobacco: Never Assessed Comments Unknown Sex and Gender Information Value Date Recorded Sex Assigned at Not on file Legal Sex Female 7:29 AM [employer] Gender Identity Not on file Sexual Orientation Not on file documented as of this encounter Plan of Treatment Not on file documented as of this encounter Procedures Procedure Name Priority Date/Time Associated Diagnosis Comments DIFFERENTIAL, MANUAL Routine 02/18/2024 5:00 AM CDT CBC WITH DIFFERENTIAL Routine 02/18/2024 5:00 AM CDT COMPREHENSIVE METABOLIC PANEL Routine 02/18/2024 5:00 AM CDT documented in this encounter Results * MANUAL DIFFERENTIAL (02/18/2024 5:00 AM CDT) PLATELET EST. Adequate 02/18/2024 9:06 AM CDT [facility] ANISOCYTOSIS 2+ /hpf 02/18/2024 9:06 AM CDT [facility] POIKILOCYTES 1+ /hpf 02/18/2024 9:06 AM CDT [facility] POLYCHROMASIA 1+ /hpf 02/18/2024 9:06 AM CDT [facility] Blood Collection / Unknown 02/18/2024 5:00 AM CDT 02/18/2024 7:54 AM CDT us Satnam Lawrence DO HEMATOLOGY ORDERABLES COM Malia l Result [facility] CLIA # [id number] [address] [address] [place] [address] * (ABNORMAL) CBC WITH DIFFERENTIAL (02/18/2024 5:00 AM CDT) Pathologist [facility] [place] WBC 4.2(L) 4.5 - 11.0 K/uL 02/18/2024 9:06 AM CDT [facility] RBC 4.15(L) 4.20 - 5.40 M/uL 02/18/2024 9:06 AM CDT [facility] HEMOGLOBIN 12.2 12.0 - 16.0 g/dL 02/18/2024 9:06 AM T [facility] HEMATOCRIT 39.3 36.0 - 46.0 % 02/18/2024 9:06 AM T [facility] MCV 94.7 84.0 - 103.0 fL 02/18/2024 9:06 AM CDT [facility] MCH 29.4 27.0 - 34.0 pg 02/18/2024 9:06 AM T [facility] MCHC 31.0 30.0 - 35.0 g/dL 02/18/2024 9:06 AM CDT [facility] RDW 21.0(H) 11.0 - 14.5 % 02/18/2024 9:06 AM CDT [facility] RDW-STDEV 72.2(H) 37.0 - 54.0 fL 02/18/2024 9:06 AM CDT [facility] PLATELETS 422 140 - 440 K/uL 02/18/2024 9:06 AM CDT [facility] MPV 9.1 8.9 - 12.8 fL 02/18/2024 9:06 AM CDT [facility] NEUTROPHILS 39(L) 42 - 75 % 02/18/2024 9:06 AM T [facility] LYMPHOCYTES 43 24 - 44 % 02/18/2024 9:06 AM CDT [facility] MONOCYTES 9 2 - 10 % 02/18/2024 9:06 AM CDT [facility] EOSINOPHILS 7 0 - 7 % 02/18/2024 9:06 AM CDT [facility] BASOPHILS 1 0 - 1 % 02/18/2024 9:06 AM CDT [facility] IMMATURE GRANULOCYTES 0 0 - 2 % 02/18/2024 9:06 AM T [facility] NEUTROPHIL ABSOLUTE 1.64(L) 2.00 - 8.00 K/uL 02/18/2024 9:06 AM CDT [facility] LYMPHOCYTE ABSOLUTE 1.81 1.20 - 4.00 K/uL 02/18/2024 9:06 AM CDT [facility] MONOCYTE ABSOLUTE 0.39 0.10 - 0.60 K/uL 02/18/2024 9:06 AM CDT [facility] EOSINOPHIL ABSOLUTE 0.31 0.00 - 0.70 K/uL 02/18/2024 9:06 AM CDT [facility] BASOPHILS ABSOLUTE 0.05 0.00 - 0.20 K/uL 02/18/2024 9:06 AM T [facility] IMMATURE GRANULOCYTES ABSOLUTE 0.01 0.00 - 0.10 K/uL 02/18/2024 9:06 AM T [facility] Blood Collection / Unknown 02/18/2024 5:00 AM CDT 02/18/2024 7:54 AM CDT us Satnam Lawrence DO HEMATOLOGY ORDERABLES Final Re sult [facility] CLIA # [id number] [address] [place] [address] * (ABNORMAL) COMPREHENSIVE METABOLIC PANEL (02/18/2024 5:00 AM CDT) [facility] SODIUM 140 136 - 145 mmol/L 02/18/2024 8:51 AM T [facility] POTASSIUM 3.8 3.5 - 5.1 mmol/L 02/18/2024 8:51 AM T [facility] CHLORIDE 105 98 - 107 mmol/L 02/18/2024 8:51 AM [facility] CO2 23 22 - 29 mmol/L 02/18/2024 8:51 AM [facility] CALCIUM 9.5 8.6 - 10.0 mg/dL 02/18/2024 8:51 AM [facility] BUN 10 6 - 20 mg/dL 02/18/2024 8:51 AM [facility] CREATININE 0.60 0.51 - 0.95 mg/dL 02/18/2024 8:51 AM [facility] GLUCOSE 79 74 - 99 mg/dL 02/18/2024 8:51 AM [facility] TOTAL PROTEIN 8.0 6.4 - 8.3 g/dL 02/18/2024 8:51 AM [facility] ALBUMIN 3.5 3.5 - 5.2 g/dL 02/18/2024 8:51 AM [facility] BILIRUBIN TOTAL 0.4 0.2 - 1.0 mg/dL 02/18/2024 8:51 AM [facility] ALKALINE PHOSPHATASE 122(H) 35 - 104 U/L 02/18/2024 8:51 AM [facility] AST 12 10 - 35 U/L 02/18/2024 8:51 AM [facility] ALT 10 <=35 U/L 02/18/2024 8:51 AM [facility] GFR >60 >=60 mL/min/1.7 3 sq meter 02/18/2024 8:51 AM CDT [facility] Comment:eGFR calculated with 2020 CKD-EPI equation. Vegetarian diet, extremely high or low muscle mass, and may affect results. Cystatin C with Glomerular Filtration Rate is a suitable alternative for these patients. ANION GAP 12 9 - 20 mmol/L 02/18/2024 8:51 AM CDT [facility] Blood Collection / Unknown 02/18/2024 5:00 AM CDT 02/18/2024 7:55 AM CDT us Satnma Lawrence DO CHEMISTRY ORDERABLES Final Res ult [facility] CLIA # [id number] [address] [place] [id number] documented in this encounter Visit Diagnoses Not on filedocumented in this encounter
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
[2025-08-22 14:19] LABS: Hematocrit 40.4 % (36-47); Hemoglobin 12.90 g/dL (11.27-16.99); Mean Corpuscular HGB Conc 31.9 g/dL (30-55); Mean Corpuscular Hemoglobin 29.4 pg (27-33); Mean Corpuscular Volume 92.0 fl (85-98); Nucleated Red Blood Cells % 0 %; Platelet Count 422 10^3/cmm (157-399); Red Blood Count 4.39 10^6/uL (3.85-5.65); White Blood Count 5.95 10^3/uL (3.29-11.43)
[2025-08-22 14:22] VITALS: BP 105/70; PULSE 86; O2SAT 100
[2025-08-22 14:36] LABS: HCG, Serum Qual Negative (Negative)
[2025-08-22 14:37] LABS: Alanine Aminotransferase 8 U/L (0-33); Albumin Level 3.8 g/dL (3.5-5.2); Alkaline Phosphatase 98 U/L (35-105); Aspartate Amino Transferase 14 U/L (0-32); Blood Urea Nitrogen 10 mg/dL (6-20); Calcium 8.7 mg/dL (8.5-10.5); Carbon Dioxide 23 mmol/L (22-29); Chloride 106 mmol/L (98-107); Creatinine Clr Calc Pharmacy 109.1528; Globulin 3.8 g/dL (1.3-4.6); Glucose 57 mg/dL (65-115); Osmolality Calculated 285 mOsm/kg (285-295); Sodium 139 mmol/L (136-145); Total Protein 7.6 g/dL (6.6-8.7)
[2025-08-22 14:38] LABS: Anion Gap 13.8 (5-19); Potassium 3.8 mmol/L (3.5-5.1)
== END 2025-08-22 15:07 | disposition home or self-care (01) ==
PROVIDERS: Emergency Provider Emergency Medicine
DX: R42 Dizziness and giddiness (principal); F17.210 Nicotine dependence, cigarettes, uncomplicated
CPT/HCPCS: 36415; 80053; 84703; 85025; 99284; J7030; J8597

== ENCOUNTER 2025-09-14 16:26 | Inpatient (IN) | payer MEDICARE, SELFPAY ==
[2025-09-14 16:28] VITALS: BP 110/78; PULSE 121; RESP 18; TEMP 36.7; O2SAT 99; BMI 18.1
--- OUTSIDE RECORDS SUMMARY | 2025-09-14 16:34 | XMS_ITS | Patient Health Record ---
Author Organization [facility] Address [address], [place] [address] Support Name Relationship Address Phone Nicolasa Vang Guarantor Unknown [phone] Reason For Referral No Information Medications Medication SIG (Take, Route, Frequency, Duration) Notes Start Date End Date Status Triamcinolone Acetonide 0.25 MG/ML Topical Cream Triamcinolone Acetonide 0.25 MG/ML Topical Cream 03/27/2017 Active Fluticasone propionate 0.05 MG/ACTUAT Metered Dose Nasal [place] Fluticasone propionate 0.05 MG/ACTUAT Metered Dose Nasal [place] 08/21/2016 Active Folic Acid 1 MG Oral Tablet Folic Acid 1 MG Oral Tablet 08/08/2016 Active Nystatin 608420 UNT/ML Topical Cream Nystatin 690186 UNT/ML Topical Cream 12/21/2016 Active Ibuprofen 200 MG Oral Tablet Ibuprofen 200 MG Oral Tablet 01/08/2017 Active Loratadine 10 MG Oral Tablet Loratadine 10 MG Oral Tablet 08/29/2016 Active Immunizations Vaccine Route Administration Date Status Comme nts HPV (human papillomavirus), bivalent, 3 dose schedule Unknown 05/05/2009 Administered HPV (human papillomavirus), bivalent, 3 dose schedule Unknown 08/14/2012 Administered HPV (human papillomavirus), bivalent, 3 dose schedule Unknown 11/04/2013 Administered MMR Unknown 06/10/1998 Administered MMR Unknown 05/06/2001 Administered IPV Unknown 05/06/2001 Administered Hib (PRP-T), 4 dose schedule , ActHIB Unknown 1997 Administered Hib (PRP-T), 4 dose schedule , ActHIB Unknown 07/21/1998 Administered Hep B, adolescent or pediatr ic (11-19), 3 dose schedule Unknown 1997 Administered Hep B, adolescent or pediatr ic (11-19), 3 dose schedule Unknown 1997 Administered Hep B, adolescent or pediatr ic (11-19), 3 dose schedule Unknown 1997 Administered DTaP-Hib Unknown 1997 Administered DTaP-Hib Unknown 1997 Administered DTaP-Hib Unknown 1997 Administered DTaP-Hib Unknown 07/21/1998 Administered DTaP-Hib Unknown 05/06/2001 Administered Tdap Unknown 04/01/2010 Administered Tdap Unknown 03/27/2017 Administered Varicella (Varicella-Zoster/ Chicken Pox) Unknown 06/10/1998 Administered Varicella (Varicella-Zoster/ Chicken Pox) Unknown 11/04/2013 Administered Social History Social History Additional Details Category Social Info Options Details zzMigrated Social History Migrated Social History Smoking Status:Never smoked tobacco (finding) Plan Of Treatment No Information
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
--- NOTE | 2025-09-14 16:48 | XRR_ITS ---
PROCEDURE INFORMATION: Exam: XR Right Foot Exam date and time: 09/14/2025 4:56 PM Age: 30 years old Clinical indication: Pain; Foot; Right; Additional info: Traumatic pain TECHNIQUE: Imaging protocol: Radiologic exam of the right foot. Views: 3 or more views. COMPARISON: No relevant prior studies available. FINDINGS: Bones/joints: Normal. Soft tissues: Normal. XR/XR foot RT min 3V* [id number] IMPRESSION: No acute findings.
[2025-09-14 17:11] LABS: Glucose Urine UA Negative (Normal); Nitrate Urine Negative (Negative); Specific Gravity, Urine 1.026 (1.005-1.030)
[2025-09-14 17:16] LABS: Add Urine Microscopic? YES
[2025-09-14 17:17] LABS: PCP Screen Urine Negative (Negative)
--- NOTE | 2025-09-14 17:19 | ECG_ITS ---
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 Measurements Intervals [place] Rate: 94 P: 85 MT: 136 QRS: 82 QRSD: 93 T: 72 QT: 363 QTc: 455 Interpretive Statements SINUS RHYTHM No previous ECG available for comparison Electronically Signed On 09-17-2025 08:43:46 CDT by Adebayo Angel M.D. [email or web address]
[2025-09-14 17:23] LABS: HCG Qualitative Urine. Negative (Negative)
[2025-09-14 17:40] LABS: UA Slide Review UA Slide Review Perf
[2025-09-14 17:48] LABS: Alanine Aminotransferase 9 U/L (0-33); Albumin Level 3.9 g/dL (3.5-5.2); Alkaline Phosphatase 115 U/L (35-105); Anion Gap 13.0 (5-19); Aspartate Amino Transferase 13 U/L (0-32); Blood Urea Nitrogen 13 mg/dL (6-20); Calcium 9.1 mg/dL (8.5-10.5); Carbon Dioxide 25 mmol/L (22-29); Chloride 102 mmol/L (98-107); Creatinine Clr Calc Pharmacy 102.6415; Globulin 4.0 g/dL (1.3-4.6); Glucose 95 mg/dL (65-115); Osmolality Calculated 282 mOsm/kg (285-295); Potassium 4.0 mmol/L (3.5-5.1); Sodium 136 mmol/L (136-145); Thyroid Stimulating Hormone 1.52 uIU/mL (0.27-4.20); Total Protein 7.9 g/dL (6.6-8.7)
[2025-09-14 17:49] LABS: Acetaminophen < 5.0 ug/mL (10-30); Alcohol Level < 10 mg/dL (0-10); Salicylate < 0.3 mg/dL (3-10)
--- NOTE | 2025-09-14 17:56 | PC.NURSE ---
96 [facility] This RN and Security served copy of 96 [facility] to pt. Pt A&Ox3 in marie chair, pt calm and cooperative. No questions asked.
[2025-09-14 18:04] LABS: Hematocrit 41.7 % (36-47); Hemoglobin 13.20 g/dL (11.27-16.99); Mean Corpuscular HGB Conc 31.7 g/dL (30-55); Mean Corpuscular Hemoglobin 28.8 pg (27-33); Mean Corpuscular Volume 90.8 fl (85-98); Nucleated Red Blood Cells % 0 %; Platelet Count 406 10^3/cmm (157-399); Red Blood Count 4.59 10^6/uL (3.85-5.65); White Blood Count 8.40 10^3/uL (3.29-11.43)
[2025-09-14 18:17] LABS: Slide Review Slide Review Perform
--- NOTE | 2025-09-14 19:19 | PC.NURSE ---
urine When getting report nurse said it was a dirty catch with no uti at this time
[2025-09-14 19:50] VITALS: BP 115/72; PULSE 98; RESP 19; TEMP 36.5; O2SAT 98
[2025-09-14 21:41] VITALS: BP 115/72; PULSE 98; RESP 19; TEMP 36.5; O2SAT 98
--- NOTE | 2025-09-15 04:14 | PC.NURSE ---
pt belongings found in pt belongings was a glass pipe,baggies, other drug paraphernalia that was disposed of with JR with security.
--- NOTE | 2025-09-15 04:19 | PC.NURSE ---
Pt had swollen right ankle and was not able to walk on it very well.
--- NOTE | 2025-09-15 04:23 | PC.ADMIT ---
[email or web address] Admission Note: The patient,Nicolasa Vang,30 y/o, was given written information regarding hospital policies, unit procedures and contact persons. Patient's smoking status: current some day smoker. Vital Signs - 8 hr 09/14/25 21:41 Temperature 97.7 F Pulse Rate 98 Respiratory Rate 19 H Blood Pressure 115/72 Pulse Oximetry 98 Oxygen Delivery Method Room Air Pt had swollen right ankle and was not able to walk on it very well.
[2025-09-15 06:00] VITALS: BP 97/58; PULSE 76; RESP 16; TEMP 36.4; O2SAT 99
[2025-09-15 14:00] VITALS: BP 99/58; PULSE 77; RESP 16; TEMP 36.7; O2SAT 98
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
[2025-09-15 19:57] VITALS: BP 102/60; PULSE 90; RESP 16; TEMP 36.7; O2SAT 97
[2025-09-16 06:00] VITALS: BP 102/67; PULSE 77; RESP 17; TEMP 36.4; O2SAT 98
--- NOTE | 2025-09-16 12:29 | PC.NURSE ---
Pt given a purple tshirt to wear as a base layer of clothing on the unit, pt complained of being cold.
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
[2025-09-16 14:00] VITALS: BP 97/61; PULSE 78; RESP 17; TEMP 36.6; O2SAT 98
[2025-09-16 20:09] VITALS: BP 100/60; PULSE 79; RESP 18; TEMP 36.8; O2SAT 98
[2025-09-17 06:00] VITALS: BP 93/53; PULSE 76; RESP 18; TEMP 36.6; O2SAT 98
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
[2025-09-17 14:00] VITALS: BP 105/67; PULSE 71; RESP 16; TEMP 36.6; O2SAT 100
[2025-09-17 22:00] VITALS: BP 92/53; PULSE 79; RESP 16; TEMP 36.8; O2SAT 98
[2025-09-18 06:00] VITALS: BP 105/64; PULSE 76; RESP 16; TEMP 36.8; O2SAT 98
--- NOTE | 2025-09-18 09:29 | PC.NURSE ---
Called [facility] ([phone]) and spoke to staff, they stated pt is accepted into their facility and can arrive anytime today at or before 1700.
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
[2025-09-18 14:00] VITALS: BP 108/72; PULSE 78; RESP 18; TEMP 36.7; O2SAT 99
--- NOTE | 2025-09-18 14:45 | DCPLANNER ---
Imm was given to pt and rights explained. Copy placed on pts file.
[2025-09-18 15:50] VITALS: BP 108/72; PULSE 78; RESP 18; TEMP 36.6; O2SAT 99
== END 2025-09-18 16:31 | disposition home or self-care (01) | DRG 885 ==
LOC: ER 17:10 → NP 18:31
PROVIDERS: Admitting Provider Psychiatry & Neurology Psychiatry; Emergency Provider Emergency Medicine; Visit Provider Psychiatry & Neurology Psychiatry
DX: F33.9 Major depressive disorder, recurrent, unspecified (principal); R45.851 Suicidal ideations; F15.20 Other stimulant dependence, uncomplicated; K50.90 Crohn's disease, unspecified, without complications; F43.10 Post-traumatic stress disorder, unspecified; R45.850 Homicidal ideations; M79.671 Pain in right foot; F17.210 Nicotine dependence, cigarettes, uncomplicated; Z87.820 Personal history of traumatic brain injury
CPT/HCPCS: 36415; 73630; 80053; 80306; 80307; 81001; 81025; 84443; 85025; 93005; 97150; 97165; 99285; J9999